=== PATIENT | female | born 1985 ===

== ENCOUNTER 2020-05-18 15:53 | Emergency (ER) | payer OTHER, SELFPAY ==
[2020-05-18 16:03] VITALS: BP 163/77; PULSE 100; RESP 18; TEMP 36.7; O2SAT 98; BMI 54.9
--- NOTE | 2020-05-18 18:39 | ED_ITS ---
HPI - Skin/Abscess/Foreign Bdy General Chief complaint: Skin/Abscess/Foreign Body <Anup Buck NP - Last Filed: 05/18/20 18:45> Stated complaint: spider bite, l leg swelling <Anup Buck NP - Last Filed: 05/18/20 18:45> Time Seen by Provider: 05/18/20 17:27 <Anup Buck NP - Last Filed: 05/18/20 18:45> Source: EMS <Anup Buck NP - Last Filed: 05/18/20 18:45> Mode of arrival: EMS <Anup Buck NP - Last Filed: 05/18/20 18:45> Limitations: no limitations <Anup Buck NP - Last Filed: 05/18/20 18:45> History of Present Illness HPI narrative: 34-year-old female blown past medical history presenting with complaint of spider bite to her left de la rosa area and her left anterior thigh area. States noticed this today. There is no fever. There is no chills. There is no joint aches. There is no recent travel or sick contacts. <Anup Buck NP - Last Filed: 05/18/20 18:45> MD complaint: rash <Anup Buck NP - Last Filed: 05/18/20 18:45> Onset (ago): day(s) <Anup Buck NP - Last Filed: 05/18/20 18:45> Tetanus up to date: yes <Anup Buck NP - Last Filed: 05/18/20 18:45> Location: [facility] <Anup Buck NP - Last Filed: 05/18/20 18:45> Severity: mild <Anup Buck NP - Last Filed: 05/18/20 18:45> Quality: aching and pruritic <Anup Buck NP - Last Filed: 05/18/20 18:45> Relieving factors: none <Anup Buck NP - Last Filed: 05/18/20 18:45> Exacerbating factors: none <Anup Buck NP - Last Filed: 05/18/20 18:45> Context: none <Anup Buck NP - Last Filed: 10/15/20 18:45> Associated symptoms: denies other symptoms <Anup Buck NP - Last Filed: 05/18/20 18:45> Treatments prior to arrival: none <Anup Buck NP - Last Filed: 05/18/20 18:45> Related Data Home medications: Previous Rx's Medication Instructions Recorded mupirocin calcium 1 applic TOPICAL BID #30 g 05/18/20 <Anup Buck NP - Last Filed: 05/18/20 18:45> Allergies/Adverse reactions: Allergies Allergy/AdvReac Type Severity Reaction Status Date / Time morphine Allergy Unknown throat Verified 12/29/19 00:00 closing BEES, CATS, DOGS Allergy Unknown Uncoded 12/29/19 00:00 Vicodin Allergy Unknown throat Uncoded 12/29/19 00:00 closing Prilosec AdvReac Unknown nose bleeds Uncoded 12/29/19 00:00 <Anup Buck NP - Last Filed: 05/18/20 18:45> Review of Systems Review of Systems: Constitutional: No Weight loss, No Fever, No Chills, No Night Sweats, No Fatigue, No Malaise ENT/Mouth: No Hearing loss, No Ear Pain, No Nasal Congestion, No Sinus Pain, No Hoarseness, No sore throat, No Rhinorrhea, No Swallowing Difficulty Eyes: No Eye Pain, No Swelling, No Redness, No Foreign Body, No Discharge, No Vision Changes Cardiovascular: No Chest Pain, No SOB, No Dyspnea on Exertion, No Orthopnea, No Edema, No Palpitations Respiratory: No Cough, No Sputum, No Wheezing, No Smoke Exposure, No Dyspnea Gastrointestinal: No Nausea, No Vomiting, No Diarrhea, No Constipation, No abdominal Pain, No Hematochezia, No Melena Genitourinary: no irregular bleeding, No Dysuria, No Urinary Frequency, No Hematuria, No Urinary Incontinence, No Urgency, No Flank Pain, No Urinary Flow Changes, No Hesitancy Musculoskeletal: No joint pain, No Myalgias, No Joint Swelling Skin: No Skin Lesions, + rash Neuro: No Weakness, No Numbness, No Paresthesias, No Loss of Consciousness, No Dizziness, No Headache Psych: No Anxiety/Panic, No Depression, No SI/HI/AH/VH, No Social Issues, Heme/Lymph: No Bruising, No Bleeding,No Lymphadenopathy Endocrine: No Polyuria, No Polydipsia, No Temperature Intolerance <Anup Buck NP - Last Filed: 05/18/20 18:45> [facility] Past Medical History Attestation statement: The following information was validated with the patient. <Anup Buck NP - Last Filed: 05/18/20 18:45> Medical History: Medical History (Updated 05/19/20 @ 00:01 by Sahil Cardenas) Anxiety Asthma Depression GERD (gastroesophageal reflux disease) HTN (hypertension) <Anup Buck NP - Last Filed: 05/18/20 18:45> Social History Social History: Social History Advance Directives: No Advance Directives Information Provided: Yes <Anup Buck NP - Last Filed: 05/18/20 18:45> Physical Exam Vital Signs: Vital Signs: Vital Signs Temp Pulse Resp BP Pulse Ox 05/18/20 16:03 98.1 F 100 18 163/77 H 98 Body Mass Index 54.9 Reviewed <Anup Buck NP - Last Filed: 05/18/20 18:45> Vital Signs: Vital Signs Temp Pulse Resp BP Pulse Ox 05/18/20 16:03 98.1 F 100 18 163/77 H 98 Body Mass Index 54.9 <Beto Cuenca MD - Last Filed: 05/23/20 15:30> Const: General: cooperative <Anup Buck NP - Last Filed: 05/18/20 18:45> HENMT: Head: Yes normal to inspection <Anup Buck NP - Last Filed: 05/18/20 18:45> Chest: Chest palpation & inspection: normal inspection of the chest <Anup Buck NP - Last Filed: 05/18/20 18:45> Breast/axilla inspection: normal inspection of the breasts <Anup Buck NP - Last Filed: 05/18/20 18:45> Resp: Effort & Inspection: normal respiratory effort <Anup Buck NP - Last Filed: 05/18/20 18:45> Skin: Other: Small area of follicular irritation noted to the left anterior de la rosa and left anterior thigh. There is no obvious insect bite, indurated/ abscessed area. There is no erythema. There is no discharge. There is no bull's eye rash. <Anup Buck NP - Last Filed: 05/18/20 18:45> Course Course Course Narrative: I have reviewed the chart <Beto Cuenca MD - Last Filed: 05/23/20 15:30> Discharge Plan Discharge Clinical Impression: Insect bites, Folliculitis <Anup Buck NP - Last Filed: 05/18/20 18:45> Patient Disposition: Home, Self-Care <Anup Buck NP - Last Filed: 05/18/20 18:45> Instructions: Insect Bite or Sting (ED) <Anup Buck NP - Last Filed: 05/18/20 18:45> Prescriptions: New mupirocin calcium 2 % cream 1 applic topical BID Qty: 30 RF: 0 <Anup Buck NP - Last Filed: 05/18/20 18:45> Interventions: ED Discharge Assessment Last Done: 05/18/20 19:11 <Anup Buck NP - Last Filed: 05/18/20 18:45> Discharge Date/Time: 05/18/20 19:13 <Anup Buck NP - Last Filed: 05/18/20 18:45>
== END 2020-05-18 19:13 | disposition home or self-care (01) ==
PROVIDERS: Emergency Provider Emergency Medicine; PCP Internal Medicine
DX: L73.9 Follicular disorder, unspecified (principal); S70.362A Insect bite (nonvenomous), left thigh, initial encounter; S80.862A Insect bite (nonvenomous), left lower leg, initial encounter; W57.XXXA Bitten or stung by nonvenomous insect and other nonvenomous arthropods, initial encounter; I10 Essential (primary) hypertension; Y93.9 Activity, unspecified; Y92.009 Unspecified place in unspecified non-institutional (private) residence as the place of occurrence of the external cause; Y99.9 Unspecified external cause status
CPT/HCPCS: 99283

== ENCOUNTER 2020-05-24 15:59 | Emergency (ER) | payer OTHER, SELFPAY ==
[2020-05-24 16:45] VITALS: BP 137/80; PULSE 95; RESP 16; TEMP 36.4; O2SAT 96; BMI 54.9
--- NOTE | 2020-05-24 17:17 | ED_ITS ---
HPI - Skin/Abscess/Foreign Bdy General Chief complaint: Wound/Laceration Stated complaint: wound check Time Seen by Provider: 05/24/20 17:07 Source: patient Mode of arrival: ambulatory Limitations: no limitations History of Present Illness HPI narrative: 34-year-old female presenting to the ED with complaints of an abscess that already drained at home prior to arrival with moderate surrounding redness. Denies any other symptoms complaints or concerns related to this. Denies history of MRSA. Related Data Previous Rx's Medication Instructions Recorded mupirocin calcium 1 applic TOPICAL BID #30 g 05/18/20 cephalexin [Keflex] 500 mg PO Q6H 10 Days #40 cap 05/24/20 doxycycline monohydrate 100 mg PO BID 10 Days #20 cap 05/24/20 Allergies Allergy/AdvReac Type Severity Reaction Status Date / Time morphine Allergy Unknown throat Verified 12/29/19 00:00 closing BEES, CATS, DOGS Allergy Unknown Uncoded 12/29/19 00:00 Vicodin Allergy Unknown throat Uncoded 12/29/19 00:00 closing Prilosec AdvReac Unknown nose bleeds Uncoded 12/29/19 00:00 Review of Systems Review of Systems: Constitutional : No Fever, No Chills, No Fatigue, No Malaise Musculoskeletal : No joint pain, No Myalgias, No Joint Swelling Skin : + Skin Lesions, No rash Neuro : No Weakness Heme/Lymph: No Lymphadenopathy Yes all other systems are reviewed and are negative [facility] Past Medical History Attestation statement: The following information was validated with the patient. Medical History Anxiety Asthma Depression GERD (gastroesophageal reflux disease) HTN (hypertension) Social History Social History Alcohol intake: never Smoked in Last 30 Days: No Use of substances other than those prescribed or required for medical reasons: No Advance Directives: No Advance Directives Information Provided: Yes Physical Exam Vital Signs: Vital Signs: Vital Signs Temp Pulse Resp BP Pulse Ox 05/24/20 16:45 97.6 F 95 16 137/80 96 Body Mass Index 54.9 vital signs have been reviewed as normal and appeared to be correct. Blood pressure normal. Heart rate normal. Respiration rate normal. Temperature normal. Oxygen saturation normal. Appearance: Alert. Oriented X3. No acute distress. Head: Normal external exam. Normocephalic. Atraumatic. No Fuentes signs noted. No raccoon eyes noted Eyes: PERRLA. EOMI. Conjunctiva and sclera normal. Eyelids normal. ENT: EAC normal. TM's Normal. Pharynx normal. Uvula midline. Moist mucous membranes. No trismus noted. No drooling noted. No muffled voice noted. Neck: Normal inspection. Neck supple. FROM. No adenopathy. Thyroid Normal. No meningeal signs. No neck mass noted. CVS: Normal heart rate and rhythm. Heart sound normal. No murmurs noted. Pulses normal throughout. Respiratory: No respiratory distress. Painless inspiration. Breath sounds normal. No wheezes/rales/rhonchi noted. Chest nontender. No accessory muscle usage noted or decreased air movement noted. Abdomen: Soft and nontender. Bowel sounds normal in all 4 quadrants. No distention noted. No organomegaly noted. No visible injury noted. Back: No CVA tenderness. Full range of motion noted. Skin: Skin warm and dry. Normal skin color. Normal skin turgor. No rashes/lacerations noted. Wound noted to right side of back with moderate surrounding erythema. No streaking/ induration / fluctuance noted or drainage. Extremities: No lower extremity edema. Extremities exhibit normal range of motion. Extremities nontender. Neuro: Oriented X 3. No motor deficit. No sensory deficit. Reflexes normal. Course Course Course Narrative: 34-year-old female presenting to the ED with complaints of an abscess that already drained at home prior to arrival with moderate surrounding redness. Denies any other symptoms complaints or concerns related to this. Denies history of MRSA. - Plan: I cleaned the wound covered with topical bacitracin and a knot inherent clean dressing will DC home with antibiotics and referral to the wound clinic. Patient understands to return if any new or worsening symptoms and to follow-up with the wound clinic and her primary. Discharge Plan Discharge Clinical Impression: Wound cellulitis Cellulitis Qualifiers: Site of cellulitis: trunk Site of cellulitis of trunk: back Qualified Code(s): L03.312 - Cellulitis of back [any part except buttock] Patient Disposition: Home, Self-Care Instructions: Cellulitis (ED), Acute Wounds (ED) Additional Instructions: Please follow-up with the Wound Clinic I gave you a slip with the information for the wound clinic. Or return if any new or worsening symptoms. Also follow- up with your primary care provider. Prescriptions: New doxycycline monohydrate 100 mg capsule 100 mg PO BID 10 Days Qty: 20 RF: 0 cephalexin [Keflex] 500 mg capsule 500 mg PO Q6H 10 Days Qty: 40 RF: 0 No Action mupirocin calcium 2 % cream 1 applic topical BID Qty: 30 RF: 0 Print Language: Polish
== END 2020-05-24 17:45 | disposition home or self-care (01) ==
PROVIDERS: Emergency Provider Emergency Medicine
DX: L03.312 Cellulitis of back [any part except buttock and flank] (principal); S31.000A Unspecified open wound of lower back and pelvis without penetration into retroperitoneum, initial encounter; X58.XXXA Exposure to other specified factors, initial encounter; I10 Essential (primary) hypertension; Y93.9 Activity, unspecified; Y92.9 Unspecified place or not applicable; Y99.9 Unspecified external cause status
CPT/HCPCS: 99283; 99284

== ENCOUNTER 2024-04-15 11:26 | Outpatient (AMB) | payer OTHER, SELFPAY ==
[2024-04-15 11:27] VITALS: BP 138/84; PULSE 72; O2SAT 96; BMI 73.3
--- NOTE | 2024-04-15 11:27 | A.OFFPC_ITS ---
Vital Signs 3 04/15/24 11:27 Height 5 ft 5 in Weight 440 lb 7.737 oz BMI 73.3 BP 138/84 Blood Pressure Location Lt brachial Position Sitting Pulse 72 Pulse Source Pulse Oximeter Pulse Oximetry (%) 96 Oxygen Delivery Method Room Air Intake Visit Reasons: pre-op with Dr. 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 Accompanied by: Self / Same As Patient Allergies morphine Allergy (Unknown, Verified 04/15/24 11:49) throat closing BEES, CATS, DOGS Allergy (Unknown, Uncoded 04/15/24 11:49) rash Vicodin Allergy (Unknown, Uncoded 04/15/24 11:49) throat closing Prilosec Adverse Reaction (Unknown, Uncoded 04/15/24 11:49) nose bleeds Medication List - Last Reconciled 04/15/24 by Wendy Núñez PA-C albuterol sulfate 90 mcg/actuation (ProAir HFA) 2 puffs inhalation QID utimhbnhkc-sbjmhsqxsuity-whhg 50-325-40 mg 1 cap PO Q6H PRN 3 days gabapentin 800 mg PO BID hydrochlorothiazide 25 mg PO DAILY 30 days hydroxyzine HCl 25 mg PO TID PRN ibuprofen 600 mg PO TID 7 days mupirocin 2% 1 appl topical BID 10 days mupirocin calcium 2% 1 appl topical BID ondansetron 8 mg PO Q12H PRN 5 days pantoprazole 40 mg PO DAILY 90 days prednisone 20 mg PO DAILY 3 days propranolol 20 mg PO BID sumatriptan succinate take 1 tab at onset of headache; if no relief may repeat 1 tab after at least 2 hrs; max = 4 tabs/24 hr PO 30 days tizanidine 2 mg PO Q8H PRN 5 days Tobacco use date assessed: 04/15/24 Dental Screening Dental Screen Date: 04/15/24 Did you have a dental visit in the last 12 months?: No Did you have a dental problem in the last 6 months where you did not have access to dental care?: No Was dental information given to patient?: Patient has dentist HPI pre-op with Dr. Duke 04/22 2 HPI0 Details 38 year old female with past history of asthma, GERD, hypertension, PTSD, anxiety, OCD, and IBS last seen by Nurse Practitioner coming in for pre op appointment. Patient has not been seen in our office since 2021. Patient states she is feeling generally well she does follow with [facility]NOTE 3] in [place] for all of her psychiatric diagnoses and treatment. She does admit to occasional leg swelling and does salt baths and elevation with good improvement. She does have a concern of a open lesion on the left side of her abdomen which has been present for the last 4 days. She states she does have rib pain along with this which began about the same time the lesion appeared. She will manually drain the lesion every day which produces green white discharge. 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 [facility] Medical History (Updated 04/15/24 @ 12:59 by Wendy Núñez PA-C) HTN (hypertension) GERD (gastroesophageal reflux disease) Anxiety Depression Asthma Surgical History (Updated 04/15/24 @ 11:57 by Wendy Núñez PA-C) H/O breast surgery Social History Housing: House Alcohol intake: never Patient Tobacco Use Status: Never used Tobacco e-Cigarette/Vaping Use: Never Used Second Hand Smoke Exposure: No service: No Current occupational status: disabled Current occupational exposures/hazards: No Cognitive needs: No Hearing needs: No Vision needs: Yes Questionnaire PHQ-9 Over the last 2 weeks, how often have you been bothered by any of the following problems? 1. Little interest or pleasure in doing things: more than half the days 2. Feeling down, depressed, or hopeless: nearly every day 3. Trouble falling or staying asleep, or sleeping too much: more than half the days 4. Feeling tired or having little energy: more than half the days 5. Poor appetite or overeating: more than half the days 6. Feeling bad about yourself - or that you are a failure or have let yourself or your family down: nearly every day 7. Trouble concentrating on things, such as reading the newspaper or watching television: several days 8. Moving or speaking so slowly that other people could have noticed. Or the opposite - being so fidgety or restless that you have been moving around a lot more than usual: several days 9. Thoughts that you would be better off or of hurting yourself in some way: not at all Total score: 16 Depression Screening Interpretation: Positive Depression Screening Done: Yes 36287 - PHQ-9 Billing: Yes Source: Developed by Drs. Héctor Tilley, Laura Ortiz, Sharif Duenas and colleagues, with an educational stella from [employer]. Thrive Questionnaire Date Thrive assessed: 04/15/24 I am a: Patient What is your living situation today?: I have a steady place to live Within the past 12 months, did the food you bought not last and you didn't have the money to get more?: Never true Within the past 12 months, did you worry whether your food would run out before you got money to buy more?: Never true Do you have trouble paying for medicines?: No Do you have trouble getting transportation to medical appointments?: No Do you have trouble paying your heating and electricity bill?: No Do you have trouble taking care of your child, family member or friend?: No Do you have trouble with day-to-day activities such as bathing, preparing meals, shopping, managing finances, etc.?: No Are you currently unemployed and looking for a job?: No Are you interested in more education?: No Please select the resources that you would like help with: None Currently or been in a relationship where the following occur: No concerns reported THRIVE Score: 0 AUDIT C Alcohol Use Questionnaire (AUDIT-C) 1. How often do you have a drink containing alcohol?: Never Total Score: 0 Score Reviewed/Action Taken: No PILY-7 AMB Questionnaire PILY-7 Date PILY - 7 assessed: 04/15/24 Feeling nervous, anxious, or on edge: 2 = More than half the days Not being able to stop or control worryin = More than half the days Worrying too much about different things: 2 = More than half the days Trouble relaxin = More than half the days Being so restless that it is hard to sit still: 2 = More than half the days Becoming easily annoyed or irritable: 2 = More than half the days Feeling afraid as if something awful might happen: 2 = More than half the days Total PILY-7 score (0-4 normal; 5-9 mild; 10-14 moderate; 15-21 severe): 14 Source: Developed by Laura Escalante Kurt Kroenke and colleagues, with an educational stella from [employer]. PILY-7 Assessment Billing PILY-7 Assessment Tool: PILY-7 Assessment 35115 Review of Systems Const Denies body aches, Denies fatigue, Denies fever(s), Denies frequent falls, Reports headache(s) and Denies weakness Eyes Reports no additional complaints and Denies change in vision ENT Denies dysphagia, Denies dizziness, Denies facial pain, Reports headache(s), Denies nasal congestion and Denies odynophagia Card Denies chest pain, Denies syncope, Denies irregular heart rhythm, Denies leg edema, Denies lightheadedness and Denies dyspnea Resp Denies cough and Denies dyspnea GI Denies abdominal pain, Reports constipation (IBS), Denies dysphagia, Denies dyspepsia, Reports diarrhea (IBS), Denies nausea, Denies odynophagia and Denies vomiting Denies urinary frequency, Denies dysuria, Denies urinary hesitancy and Denies urinary urgency Musc Denies back pain and Denies myalgias Skin/Breast Reports system reviewed and no additional complaints, except as documented Neuro Denies dizziness, Denies syncope, Denies frequent falls, Reports headache(s) and Denies weakness Psych Reports no additional complaints Endo Denies fatigue Physical exam (Primary Care) Vital Signs: Last Vital Signs Pulse 72 04/15/24 11:27 BP 138/84 04/15/24 11:27 Pulse Ox 96 04/15/24 11:27 Oxygen Delivery Method Room Air 04/15/24 11:27 BMI result Body Mass Index 73.3 Tobacco/Smoking Status: Tobacco use Status Tobacco use date assessed 04/15/24 04/15/24 11:29 Patient Tobacco Use Status Never used Tobacco 04/15/24 11:27 e-Cigarette/Vaping Use Never Used 04/15/24 11:27 PHQ-9: PHQ-9 Score PHQ-9: Total score 16 04/15/24 11:36 Depression Screening Interpretation: Positive Thrive Assessment: Date of Thrive Assessment Date Thrive assessed 04/15/24 04/15/24 11:29 Currently or been in a relationship where the following occur: No concerns reported Const General: cooperative, healthy appearing, comfortable and no acute distress Orientation/consciousness: patient oriented x3 HENMT Head: Yes normocephalic Ears: hearing grossly normal bilaterally, external ears normal, TM's normal bilaterally and EAC's normal General nose exam: Normal external nose present Face and sinus: Yes normal facial exam and Yes sinuses nontender Mouth: Normal oral and palatal mucosa present and tongue normal Throat: Yes posterior oropharynx normal Eyes General: appearance normal, both eyes and all related structures Conjunctivae: conjunctivae normal Pupils: Equal, round and reactive pupils present EOM: EOMs intact bilaterally and No Nystagmus present Neck Neck: Yes normal visual inspection, Yes full ROM and Yes no lymphadenopathy Chest Other: Tenderness to palpation over bilateral ribs Chest palpation & inspection: normal inspection of the chest Resp Effort & Inspection: normal respiratory effort Auscultation: clear to auscultation bilaterally, no crackles, no rales, no rhonchi, no wheezes and breath sounds present Cardio Rate: regular rate Rhythm: regular rhythm Peripheral pulses: radial pulses present and dorsalis pedis present GI Inspection: Yes normal to inspection and No Abdominal wall edema Palpation (GI): Soft to palpation, not firm and nontender Auscultation: normal bowel sounds Rectal Exam - Female: deferred General: Yes no CVA tenderness Back/Spine/Pelvis Back: no CVA tenderness Skin Other: Patient has 1-2 cm open wound on left side of abdomen without evidence tunneling and without drainage. There is surrounding erythema in about a 3 cm radius Full body images: 2 1. Lesion Neuro General: patient oriented x3 Cranial nerves: Yes Equal, round and reactive pupils present, Yes Midline tongue present, Yes Ability to bilaterally elevate shoulders present and No Nystagmus present Gait exam (Neuro): Normal gait present Extrem General: Yes normal to inspection, Yes full ROM, No no pedal edema and No edema Psych Speech and movement: Normal speech and movement present Affect: normal affect Insight: Good insight present (Psych) Judgement: Good judgement present (Psych) Assessment and Plan Assessment & Plan (1) Asthma: Code(s): J45.909 - Unspecified asthma, uncomplicated Plan: Patient states her asthma is well controlled and rarely uses her inhaler. Refill sent or inhaler. Continue to avoid triggers such as allergens and smoke. (2) Depression: Code(s): F32.9 - Major depressive disorder, single episode, unspecified Qualifiers: Depression Type: other depression Qualified Code(s): F32.89 - Other specified depressive episodes Plan: Currently being managed by [facility]. Continue on current med regimen. (3) Anxiety: Code(s): F41.9 - Anxiety disorder, unspecified Plan: Currently following with [facility] and continue on current med regimen. (4) GERD (gastroesophageal reflux disease): Code(s): K21.9 - Gastro-esophageal reflux disease without esophagitis Plan: Avoid trigger foods such as citrus, tomato products, soda, caffeine, spicy foods and other foods that may be irritating to your stomach. Avoid laying flat 3-4 hours after eating and elevate the head of the bed 30 degrees to prevent acid from moving into the esophagus. Continue on pantoprazole (5) HTN (hypertension): Code(s): I10 - Essential (primary) hypertension Plan: Previously on blood pressure medication that made her lightheaded and dizzy and no longer takes. Blood pressure at goal today. Avoid salt intake and encourage healthy diet and regular exercise. (6) PTSD (post-traumatic stress disorder): Code(s): F43.10 - Post-traumatic stress disorder, unspecified Plan: Continue to follow with [facility] and continue on current med regimen. (7) Annual physical exam: Code(s): Z00.00 - Encounter for general adult medical examination without abnormal findings Plan: Patient is up-to-date on all recommended routine screenings and vaccinations for her age, unclear when her last Pap was completed. Ordered for updated blood work. (8) Rib pain: Code(s): R07.81 - Pleurodynia Plan: Patient states she has been having rib pain since the presence of the cellulitis lesion and would like an x-ray. She did have pain on palpation of the ribs on exam. Chest x-ray ordered. (9) Cellulitis: Code(s): L03.90 - Cellulitis, unspecified Qualifiers: Site of cellulitis: trunk Site of cellulitis of trunk: back Qualified Code(s): L03.312 - Cellulitis of back [any part except buttock] Plan: Patient does have small lesion left side of the abdomen down while occasionally drain. She has been manually draining the lesion which produces yellow/green purulent discharge. Lesion has been present for about 4 days and she denies any fevers. She does have a history of necrotizing cellulitis as well as MRSA and we will cover for MRSA with Bactrim and follow up in 1 week. Plan This note was constructed using voice recognition software. While every effort has been made to ensure accuracy and management lecturer, still areas may have been included sometimes these areas may affect the content or meeting of the given symptoms. Total time spent caring for the patient today was 30 minutes. This includes time spent before the visit reviewing the chart, time spent during the visit, and time spent after the visit and documentation. Orders: Orders 2 Comprehensive Met. Panel Today Z00.00 - Encounter for general adult medical examination without abnormal findings Lipid Panel Today Z00.00 - Encounter for general adult medical examination without abnormal findings Vitamin B12 and Folate Today Z00.00 - Encounter for general adult medical examination without abnormal findings Vitamin D 25-OH (D2 and D3) Today Z00.00 - Encounter for general adult medical examination without abnormal findings Hemoglobin A1c Today Z00.00 - Encounter for general adult medical examination without abnormal findings XR chest 2V Today F32.89 - Other specified depressive episodes, F41.9 - Anxiety disorder, unspecified, F43.10 - Post-traumatic stress disorder, unspecified, I10 - Essential (primary) hypertension, J45.909 - Unspecified asthma, uncomplicated, K21.9 - Gastro-esophageal reflux disease without esophagitis, R07.81 - Pleurodynia, Z00.00 - Encounter for general adult medical examination without abnormal findings Complete Blood Count Auto Diff Today Z00.00 - Encounter for general adult medical examination without abnormal findings Free T4 (Free Thyroxine) Today Z00.00 - Encounter for general adult medical examination without abnormal findings TSH reflex Free T4 Today Z00.00 - Encounter for general adult medical examination without abnormal findings Medications: New 2 sulfamethoxazole-trimethoprim 800-160 mg (Bactrim DS) 1 tab PO BID 7 days 14 tabs 0RF Changed 2 From albuterol sulfate 90 mcg/actuation (ProAir HFA) 2 puffs inhalation QID 8.5 ea 0RF J45.909 - Unspecified asthma, uncomplicated To albuterol sulfate 90 mcg/actuation 2 puffs inhalation QID 8.5 ea 0RF J45.909 - Unspecified asthma, uncomplicated Refilled 2 ondansetron 8 mg PO Q12H 5 days PRN 10 tabs 0RF nausea and vomiting Coding Level of Care Code Est Pt Level 3 (90676) Est Pt Prev Care 18-39y(34492) Diagnoses Asthma J45.909 Other depression F32.89 Depression Type: other depression Anxiety F41.9 GERD (gastroesophageal reflux disease) K21.9 HTN (hypertension) I10 PTSD (post-traumatic stress disorder) F43.10 Annual physical exam Z00.00 Rib pain R07.81 Cellulitis L03.312 Site of cellulitis: trunk Site of cellulitis of trunk: back Additional Codes PILY-7 Assessment Billing - PILY-7 Assessment Tool: PILY-7 Assessment 66099 ([id number])
== END 2024-04-15 12:12 | disposition home or self-care (01) ==
DX: Z00.00 Encounter for general adult medical examination without abnormal findings (principal); F32.89 Other specified depressive episodes; J45.909 Unspecified asthma, uncomplicated; F41.9 Anxiety disorder, unspecified; L03.311 Cellulitis of abdominal wall; K21.9 Gastro-esophageal reflux disease without esophagitis; I10 Essential (primary) hypertension; F43.10 Post-traumatic stress disorder, unspecified; R07.81 Pleurodynia
CPT/HCPCS: 99213; 99395

== ENCOUNTER 2024-04-15 12:20 | Outpatient (REF) | payer OTHER, SELFPAY ==
--- NOTE | ~2024-04-15 | XR_ITS ---
EXAMINATION: XR CHEST CLINICAL INFORMATION: Pleurodynia COMPARISON: None available. TECHNIQUE: 2 views of the chest were obtained. FINDINGS: No significant abnormality is noted involving the heart, lungs, mediastinum, bony thorax or soft tissues. XR/XR chest 2V IMPRESSION: No acute cardiopulmonary disease. Electronically signed by: Karli Otoole MD 05/06/2024 02:08 PM EDT
== END 2024-04-15 12:21 | disposition home or self-care (01) ==
LOC: HO.XRAY 12:20
DX: R07.81 Pleurodynia (principal)
CPT/HCPCS: 71046

== ENCOUNTER 2024-04-28 08:28 | Outpatient (AMB) | payer OTHER, SELFPAY ==
[2024-04-28 08:44] VITALS: BP 126/84; PULSE 92; O2SAT 98; BMI 73.7
--- NOTE | 2024-04-28 08:44 | A.OFFPC_ITS ---
Vital Signs 04/28/24 08:44 Height 5 ft 5 in Weight 443 lb 2.066 oz BMI 73.7 BP 126/84 Blood Pressure Location Lt brachial Position Sitting Pulse 92 Pulse Source Pulse Oximeter Pulse Oximetry (%) 98 Oxygen Delivery Method Room Air Intake Visit Reasons: f/u cellulitis Chainstitch Seat Joiner Required: No Accompanied by: Self / Same As Patient Allergies morphine Allergy (Unknown, Verified 04/28/24 09:29) throat closing BEES, CATS, DOGS Allergy (Unknown, Uncoded 04/28/24 09:29) rash Vicodin Allergy (Unknown, Uncoded 04/28/24 09:29) throat closing Prilosec Adverse Reaction (Unknown, Uncoded 04/28/24 09:29) nose bleeds Medication List - Last Reconciled 04/28/24 by Wendy Núñez PA-C albuterol sulfate 90 mcg/actuation 2 puffs inhalation QID sbsdgfhnuk-bwimulnpwyslr-xukh 50-325-40 mg 1 cap PO Q6H PRN 3 days gabapentin 800 mg PO BID hydrochlorothiazide 25 mg PO DAILY 30 days ibuprofen 600 mg PO TID 7 days mupirocin 2% 1 appl topical BID 10 days mupirocin calcium 2% 1 appl topical BID ondansetron 8 mg PO Q12H PRN 5 days pantoprazole 40 mg PO DAILY 90 days prednisone 20 mg PO DAILY 3 days propranolol 20 mg PO BID sulfamethoxazole-trimethoprim 800-160 mg (Bactrim DS) 1 tab PO BID 7 days sumatriptan succinate take 1 tab at onset of headache; if no relief may repeat 1 tab after at least 2 hrs; max = 4 tabs/24 hr PO 30 days tizanidine 2 mg PO Q8H PRN 5 days Tobacco use date assessed: 04/28/24 Dental Screening Dental Screen Date: 04/28/24 Did you have a dental visit in the last 12 months?: No Did you have a dental problem in the last 6 months where you did not have access to dental care?: No Was dental information given to patient?: Patient has dentist HPI f/u cellulitis HPI Details 38-year-old female with past medical his tory of asthma, GERD, hypertension, PTSD, anxiety, OCD, and IBS last seen April 2024 coming in for cellulitis follow up. In review of the notes, patient was seen in [facility] ED 04/21/2024 for cellulitis in the ER was not found to have any evidence of cellulitis on the left abdominal wall she was given a dose of Bactrim and advised to complete her antibiotic course and given Zofran. She tells us today she is still having severe left-sided abdominal pain along with left-sided leg swelling and pain. In 2019 she had a splenic injury after sustaining a fall and she feels the pain is similar to that episode. She continues to have deep severe pain in the abdomen. The cellulitis and open wound has closed and no sign of infection at this time. She also mentioned she has pain when taking a deep breath in the abdomen and left side of the back. [facility] Medical History (Updated 04/28/24 @ 12:04 by Wendy Núñez PA-C) HTN (hypertension) GERD (gastroesophageal reflux disease) Anxiety Depression Asthma Surgical History H/O breast surgery Social History Housing: House Alcohol intake: never Patient Tobacco Use Status: Never used Tobacco e-Cigarette/Vaping Use: Never Used Second Hand Smoke Exposure: No Do you have a plan to hurt others: No Plan service: No Current occupational status: disabled Current occupational exposures/hazards: No Cognitive needs: No Hearing needs: No Vision needs: Yes Questionnaire PHQ-9 Over the last 2 weeks, how often have you been bothered by any of the following problems? 1. Little interest or pleasure in doing things: more than half the days 2. Feeling down, depressed, or hopeless: nearly every day 3. Trouble falling or staying asleep, or sleeping too much: more than half the days 4. Feeling tired or having little energy: more than half the days 5. Poor appetite or overeating: more than half the days 6. Feeling bad about yourself - or that you are a failure or have let yourself or your family down: nearly every day 7. Trouble concentrating on things, such as reading the newspaper or watching television: several days 8. Moving or speaking so slowly that other people could have noticed. Or the opposite - being so fidgety or restless that you have been moving around a lot more than usual: several days 9. Thoughts that you would be better off or of hurting yourself in some way: not at all Total score: 16 Depression Screening Interpretation: Positive Depression Screening Done: Yes 00532 - PHQ-9 Billing: Yes Source: Developed by Drs. Héctor Tilley, Laura Ortiz, Sharif Duenas and colleagues, with an educational stella from [employer]. Thrive Questionnaire Date Thrive assessed: 04/28/24 I am a: Patient What is your living situation today?: I have a steady place to live Within the past 12 months, did the food you bought not last and you didn't have the money to get more?: Never true Within the past 12 months, did you worry whether your food would run out before you got money to buy more?: Never true Do you have trouble paying for medicines?: No Do you have trouble getting transportation to medical appointments?: No Do you have trouble paying your heating and electricity bill?: No Do you have trouble taking care of your child, family member or friend?: No Do you have trouble with day-to-day activities such as bathing, preparing meals, shopping, managing finances, etc.?: No Are you currently unemployed and looking for a job?: No Are you interested in more education?: No Please select the resources that you would like help with: None Currently or been in a relationship where the following occur: No concerns reported THRIVE Score: 0 AUDIT C Alcohol Use Questionnaire (AUDIT-C) 1. How often do you have a drink containing alcohol?: Never Total Score: 0 Score Reviewed/Action Taken: No PILY-7 AMB Questionnaire PILY-7 Date PILY - 7 assessed: 04/28/24 Feeling nervous, anxious, or on edge: 2 = More than half the days Not being able to stop or control worryin = More than half the days Worrying too much about different things: 2 = More than half the days Trouble relaxin = More than half the days Being so restless that it is hard to sit still: 2 = More than half the days Becoming easily annoyed or irritable: 2 = More than half the days Feeling afraid as if something awful might happen: 2 = More than half the days Total PLIY-7 score (0-4 normal; 5-9 mild; 10-14 moderate; 15-21 severe): 14 Source: Developed by Drs. Héctor Tilley, Laura Ortiz, Sharif Duenas and colleagues, with an educational stella from [employer]. PILY-7 Assessment Billing PILY-7 Assessment Tool: PILY-7 Assessment 51712 Review of Systems Const Reports body aches, Denies chills and Denies fever(s) Eyes Reports no additional complaints ENT Reports no additional complaints Card Denies chest pain, Reports leg edema (Left leg), Denies lightheadedness and Denies dyspnea Resp Denies cough and Denies dyspnea GI Details: Severe left-sided abdominal pain Denies constipation, Denies diarrhea, Reports nausea and Denies vomiting Reports no additional complaints Musc Details: Left leg pain and swelling Skin/Breast Details: Cellulitis has cleared Physical exam (Primary Care) Vital Signs: Last Vital Signs Pulse 92 04/28/24 08:44 BP 126/84 04/28/24 08:44 Pulse Ox 98 04/28/24 08:44 Oxygen Delivery Method Room Air 04/28/24 08:44 BMI result Body Mass Index 73.7 Tobacco/Smoking Status: Tobacco use Status Tobacco use date assessed 04/28/24 04/28/24 08:51 Patient Tobacco Use Status Never used Tobacco 04/28/24 08:44 e-Cigarette/Vaping Use Never Used 04/28/24 08:44 PHQ-9: PHQ-9 Score PHQ-9: Total score 16 04/28/24 12:02 Depression Screening Interpretation: Positive Thrive Assessment: Date of Thrive Assessment Date Thrive assessed 04/28/24 04/28/24 08:51 Currently or been in a relationship where the following occur: No concerns reported Const General: cooperative, healthy appearing, comfortable and no acute distress Orientation/consciousness: patient oriented x3 HENMT Head: Yes normocephalic Ears: hearing grossly normal bilaterally General nose exam: Normal external nose present Eyes General: appearance normal, both eyes and all related structures Conjunctivae: conjunctivae normal Neck Neck: Yes full ROM and Yes no lymphadenopathy Resp Effort & Inspection: normal respiratory effort Auscultation: clear to auscultation bilaterally, no crackles, no rales, no rhonchi and no wheezes Cardio Rate: regular rate Rhythm: regular rhythm GI Other: Patient unable to tolerate deep palpation of the abdomen has exquisite tenderness palpation Palpation (GI): not firm and Tenderness to palpation present (GI) in the LLQ and in the LUQ Skin Other: 4-5 cm well-healing lesion without erythema, drainage, warmth on left side of abdomen Neuro General: patient oriented x3 Gait exam (Neuro): Normal gait present Extrem Other: Left lower extremity tenderness and swelling. No redness, warmth, swelling of left calf. General: Yes normal to inspection, Yes full ROM and No edema Psych Affect: normal affect Attitude: cooperative Insight: Good insight present (Psych) Judgement: Good judgement present (Psych) Assessment and Plan Assessment & Plan (1) Abdominal pain: Code(s): R10.9 - Unspecified abdominal pain Plan: Patient continues to have deep severe abdominal pain and can not tolerate an abdominal exam at this time. Advised patient to go to ER if she does have severe abdominal pain as she will most likely require imaging. Patient agrees to go to [place] ED at this time. (2) Cellulitis: Code(s): L03.90 - Cellulitis, unspecified Qualifiers: Site of cellulitis: trunk Site of cellulitis of trunk: back Qualified Code(s): L03.312 - Cellulitis of back [any part except buttock] Plan: Cellulitis has resolved and lesion has closed completely with routine wound hea ling. No erythema, warmth, drainage at this time and no further follow up recommended for this concern. Plan This note was constructed using voice recognition software. While every effort has been made to ensure accuracy and creative/art director, still areas may have been included sometimes these areas may affect the content or meeting of the given symptoms. Total time spent caring for the patient today was 30 minutes. This includes time spent before the visit reviewing the chart, time spent during the visit, and time spent after the visit and documentation. Coding Level of Care Code Est Pt Level 4 (67244) Diagnoses Abdominal pain R10.9 Cellulitis L03.312 Site of cellulitis: trunk Site of cellulitis of trunk: back Additional Codes PILY-7 Assessment Billing - PILY-7 Assessment Tool: PILY-7 Assessment [id number] ([id number])
== END 2024-04-28 09:06 | disposition home or self-care (01) ==
DX: R10.9 Unspecified abdominal pain (principal); L03.312 Cellulitis of back [any part except buttock and flank]

== ENCOUNTER → 2024-04-28 08:28 | Outpatient (BNVA) | payer OTHER, SELFPAY | DX: R10.9 Unspecified abdominal pain (principal); L03.312 Cellulitis of back [any part except buttock and flank] | CPT/HCPCS: 96127; 99212 ==

== ENCOUNTER 2024-04-28 09:16 | Emergency (ER) | payer OTHER, SELFPAY ==
--- NOTE | ~2024-04-28 | US_ITS ---
EXAMINATION: US TRIPLEX LOWER EXTREMITY, LEFT CLINICAL INFORMATION: Pain and swelling COMPARISON: None available. TECHNIQUE: Color-flow triplex imaging with spectral analysis and compression Doppler were performed on the left lower extremity. FINDINGS: Respiratory variation, normal compression and augmented flow are noted throughout the left lower extremity. Note that the study was somewhat limited due to body habitus. The left peroneal vein and distal femoral vein was not completely visualized by the rotary drier feeder. The visualized common femoral vein, superficial femoral vein, profunda femoral vein, popliteal vein and midcalf peroneal and posterior tibial venous segments show no evidence of deep venous thrombosis. There is no Duarte's cyst. US/US venous duplex LE IMPRESSION: No evidence of deep venous thrombosis involving the left lower extremity, given the above described limitations. Electronically signed by: Neto Ye MD 04/28/2024 04:05 PM EDT
--- NOTE | ~2024-04-28 | CT_ITS ---
EXAMINATION: CT ABDOMEN AND PELVIS WITH CONTRAST CLINICAL INFORMATION: Left upper quadrant pain. History of splenic laceration. COMPARISON: None available. TECHNIQUE: Multidetector volumetric images were obtained from the superior aspect of the liver through the pubic symphysis following administration 85 mL of Omnipaque 350 intravenous contrast. Sagittal and coronal reformatted images were obtained on the technologist's workstation. Oral contrast: No This CT examination was performed using dose optimization techniques as appropriate, variously including the following: *Automated exposure control *Adjustment of mA and/or kV according to patient size (this includes techniques or standardized protocols for targeted exams where dose is matched to indication/reason for exam; i.e. extremities or head) *Use of iterative reconstruction technique DLP: 1632 mGy-cm FINDINGS: LUNG BASES: Mild bibasilar atelectasis/scarring. No pericardial or pleural effusion. LIVER, GALLBLADDER, AND BILIARY TREE: Right lobe measures 20.8 cm.. No focal hepatic lesion or biliary ductal dilatation is present. The gallbladder is unremarkable with no evidence of radiopaque gallstones, gallbladder wall thickening, or obvious pericholecystic inflammatory changes. PANCREAS: Unremarkable. No acute inflammatory changes. No pancreatic duct dilatation seen. SPLEEN: Unremarkable. No perisplenic fluid or edema. ADRENAL GLANDS: Unremarkable. KIDNEYS AND URETERS: The kidneys are normal in size, shape, and attenuation. No hydronephrosis, hydroureter, or calculi seen. No perinephric stranding. BLADDER: Unremarkable. GASTROINTESTINAL TRACT: The small and large bowel are unremarkable. No bowel inflammatory changes seen. Stomach is partially distended, grossly appear unremarkable. Possible small hiatal hernia. The appendix is not definitely identified. No pericecal inflammatory changes seen. No free fluid. No free air. Is unremarkable. ABDOMINAL WALL: No significant hernia is appreciated. LYMPH NODES: No pathologically enlarged lymph nodes. VASCULAR: Normal caliber aorta PELVIC VISCERA: Unremarkable. OSSEOUS STRUCTURES: No suspicious bony process.. CT/CT abdomen pelvis w IV con IMPRESSION: 1. Hepatomegaly. 2. No acute intra-abdominal findings identified to explain the patient's pain. 3. Small hiatal hernia. 4. Additional findings and details as above. Fleischner guidelines were followed. Electronically signed by: Jaziel Prince MD 04/28/2024 06:50 PM EDT
[2024-04-28 09:27] VITALS: BP 149/99; PULSE 81; RESP 19; TEMP 37.1; O2SAT 98; BMI 73.0
--- NOTE | 2024-04-28 09:31 | ECG_ITS ---
Test Reason : CHEST PAIN Blood Pressure : / mmHG Vent. Rate : 078 BPM Atrial Rate : 078 BPM P-R Int : 108 ms QRS Dur : 092 ms QT Int : 396 ms P-R-T Axes : 053 005 022 degrees QTc Int : 451 ms Sinus rhythm with short UT Minimal voltage criteria for LVH, may be normal variant ( R in aVL ) Borderline ECG No previous ECGs available Referred By: Generic ED Physician Electronically Signed By:JAYMIE MONDRAGON
[2024-04-28 09:47] LABS: MANUAL DIFF FLAG NO
[2024-04-28 09:50] LABS: Basophils Percent Auto 0.5 % (0-2); Eosinophils Absolute Auto 0.1 X10*3/uL (0.0-0.4); Eosinophils Percent Auto 1.8 % (0-4); Hematocrit 36.9 % (37.0-47.0); Hemoglobin 12.5 g/dl (12.0-16.0); Imm Gran Abs Auto 0.01 X10*3/uL (0.00-0.03); Imm Gran Pct Auto 0.2 % (0.0-0.4); Lymphocytes Absolute Auto 1.8 X10*3/uL (1.2-4.9); Lymphocytes Percent Auto 32.6 % (20-40); Mean Corpuscular HGB Conc 33.9 g/dl (31.0-35.0); Mean Corpuscular Hemoglobin 30.7 pg (27.0-33.0); Mean Corpuscular Volume 90.7 fL (80.0-98.0); Mean Platelet Volume 8.7 fL (9.4-12.3); Monocytes Absolute Auto 0.5 X10*3/uL (0.1-1.2); Monocytes Percent Auto 8.1 % (2-11); Neutrophils Absolute Auto 3.2 x10*3/uL (2.0-8.3); Neutrophils Percent Auto 56.8 % (45-73); Platelet Count 386 X10*3/uL (160-400); Red Blood Count 4.07 X10*6/uL (4.20-5.50); Red Cell Distribution Width 14.1 % (11.0-16.0); White Blood Count 5.6 X10*3/uL (4.8-10.8)
[2024-04-28 10:06] LABS: Alanine Aminotransferase 18 U/L (0-31); Albumin Level 3.7 g/dL (3.5-5.0); Alkaline Phosphatase 76 U/L (39-117); Anion Gap 12 (12-20); Aspartate Amino Transferase 15 U/L (5-31); Bilirubin Direct 0.1 mg/dL (0.0-0.5); Bilirubin Total 0.3 mg/dL (0.0-1.0); Blood Urea Nitrogen 13 mg/dL (9-16); Calcium 8.8 mg/dL (8.4-10.2); Carbon Dioxide 26 mmol/L (22-29); Chloride 108 mmol/L (96-108); Creatinine Clr Calc Pharmacy 173.4; Estimated Glomerular Filt Rate > 60; Glucose Random 109 mg/dL (60-115); Lipase 11 U/L (8-78); Potassium 3.9 mmol/L (3.3-5.1); Sodium 142 mmol/L (135-145); Total Protein 6.9 g/dL (6.5-8.0)
[2024-04-28 10:22] LABS: Troponin-I High Sensitivity < 2.7 ng/L (<3.5-17.0)
--- NOTE | 2024-04-28 14:12 | ED.GENADULT ---
HPI - General Adult General Chief complaint: Abdominal Pain Stated complaint: cp-l arm/leg pain-swelling Time Seen by Provider: 04/28/24 14:08 Source: patient Mode of arrival: ambulatory Limitations: no limitations History of Present Illness HPI narrative: This is a 38-year-old woman with a past history of anxiety/depression, asthma, GERD, hypertension, PTSD, OCD and IBS who presents for evaluation of left upper quadrant pain and left lower extremity pain/edema. Patient states that she recently had an abscess that spontaneously drained on her left abdominal wall. She reports taking antibiotics for. She states that she fell 2 days ago and was seen at [facility]. She states that she has previously lacerated her spleen after a fall and she reports that she is concerned for another splenic laceration. She states that when she was evaluated at [facility] they did not evaluate her spleen. She states persistent left upper quadrant pain. She states no vomiting. She states no changes in bowel habits or urinary symptoms. She states no back pain. She states no associated head strike or loss of consciousness. She states no headache or neck pain. She has no chest pain or difficulty breathing. She states that she also noted some swelling in her left leg associated with the pain. She states no trauma to her leg. She states no paresthesias. Related Data Home Medications ?Medication ?Instructions ?Recorded ?Confirmed gabapentin 800 mg tablet 800 mg PO BID 11/02/21 04/28/24 propranolol 10 mg tablet 20 mg PO BID 04/15/24 04/28/24 Previous Rx's ?Medication ?Instructions ?Recorded mupirocin calcium 2 % topical cream 1 applic topical BID #30 grams 05/18/20 mupirocin 2 % topical ointment 1 appl topical BID 10 days #22 12/11/20 grams tizanidine 2 mg tablet 2 mg PO Q8H PRN muscle spasticity 11/12/21 5 days #15 tabs prednisone 20 mg tablet 20 mg PO DAILY 3 days #3 tabs 08/18/22 hydrochlorothiazide 25 mg tablet 25 mg PO DAILY 30 days #30 tabs 01/29/23 cwmgazunwy-hwcpxsgudmhkd-gapjdaoe 1 cap PO Q6H PRN pain 3 days #12 07/10/23 50 mg-325 mg-40 mg capsule caps ibuprofen 600 mg tablet 600 mg PO TID 7 days #21 tabs 08/18/23 sumatriptan succinate 25 mg tablet See Rx Instructions PO .COMPLEX 30 09/17/23 days #10 tabs pantoprazole 40 mg tablet,delayed 40 mg PO DAILY 90 days #90 tabs 03/02/24 release albuterol sulfate 90 mcg/actuation 2 puff inhalation QID #8.5 ea 04/15/24 aerosol inhaler ondansetron 8 mg disintegrating 8 mg PO Q12H PRN nausea and 04/15/24 tablet vomiting 5 days #10 tabs sulfamethoxazole 800 1 tab PO BID 7 days #14 tabs 04/15/24 mg-trimethoprim 160 mg tablet (Bactrim DS) Allergies Allergy/AdvReac Type Severity Reaction Status Date / Time iohexol [From Omnipaque] Allergy Unknown Itching Verified 04/28/24 17:45 morphine Allergy Unknown throat Verified 04/28/24 09:29 closing BEES, CATS, DOGS Allergy Unknown rash Uncoded 04/28/24 09:29 Vicodin Allergy Unknown throat Uncoded 04/28/24 09:29 closing Prilosec AdvReac Unknown nose bleeds Uncoded 04/28/24 09:29 Review of Systems Review of Systems: ROS as per [facility] Past Medical History Medical History (Updated 04/28/24 @ 16:34 by Erick Nathan MD) HTN (hypertension) GERD (gastroesophageal reflux disease) Anxiety Depression Asthma Surgical History H/O breast surgery Social History Social History Housing: House Alcohol intake: never Patient Tobacco Use Status: Never used Tobacco Smoked in Last 30 Days: No e-Cigarette/Vaping Use: Never Used Second Hand Smoke Exposure: No Use of substances other than those prescribed or required for medical reasons: No Advance Directives: No Advance Directives Information Provided: No Do you have a plan to hurt others: No Plan Patient : No service: No Current occupational status: disabled Current occupational exposures/hazards: No Cognitive needs: No Hearing needs: No Vision needs: Yes Physical Exam ED Vital Signs: Vital Signs - 24 hr 04/28/24 09:27 04/28/24 14:14 04/28/24 16:12 Temperature 98.7 F 98.4 F 97.6 F Pulse Rate 81 70 72 Respiratory Rate 19 16 17 Blood Pressure 149/99 H 133/88 125/71 Pulse Oximetry 98 99 98 Oxygen Delivery Method Room Air Room Air Room Air 04/28/24 17:43 04/28/24 18:59 Temperature 97.7 F 97.7 F Pulse Rate 82 82 Respiratory Rate 16 16 Blood Pressure 156/96 H 156/96 H Pulse Oximetry 97 97 Oxygen Delivery Method Room Air Room Air BMI result Body Mass Index 73.0 Gen: NAD, AOx3 HEENT: NCAT, EOMI, normal conjunctiva CV: RRR, 2+ bilateral radial and DP/PT pulses Pulm: CTAB, no increased work of breathing GI: Soft, left upper and lateral abdominal tenderness to palpation without overlying erythema/fluctuance/induration, no rebound, guarding or rigidity Neuro: Grossly non focal, sensation intact to light touch in bilateral lower extremity dermatomes L2-S2, equal strength to bilateral lower extremities MSK: Tenderness to palpation to the left lower extremity without overlying skin changes, no extremity deformity, bilateral lower extremity compartments are soft with intact overlying skin Medications Administered Discontinued Medications Generic Name Dose Route Start Last Admin Trade Name Freq PRN Reason Stop Dose Admin Diphenhydramine HCl 25 mg 04/28/24 17:39 04/28/24 17:42 Diphenhydramine Hcl 50 Mg/Ml Vial IVPUSH 04/28/24 17:40 25 mg ONCE ONE Administration Iohexol 100 ml 04/28/24 17:50 04/28/24 17:50 Iohexol 350 Mg/Ml 100 Ml Infus..Btl IV 04/28/24 17:51 100 ml ONCE ONE Administration Medical Decision Making Medical Decision Making MDM Narrative: Differential diagnosis includes, but is not limited to contusion, blunt abdominal trauma, DVT, herpes zoster. Patient is treated supportively here in the emergency room with 30 mg IM Toradol. Patient is afebrile and hemodynamically stable on room air. Exam is benign and reassuring. There is no evidence to suggest infectious etiology of symptoms such as with cellulitis or abscess. I independently reviewed the patient's labs and EKG as below. Kurt - RN brings to my attention that patient is having pruritus after receiving contrast for a CT. Patient reports after receiving contrast for the CT she began to feel itchy around her eyes and in her throat. She states no dysphagia. She states no chest pain or difficulty breathing. She states no abdominal pain, nausea or vomiting. Given a single organ involvement I have very low clinical suspicion for anaphylaxis. We will provide 25 mg IV Benadryl for symptom relief and continue to monitor. I reviewed radiology impression ultrasound and CT imaging results as below, which are unremarkable for any acute findings. 1854 - On re-examination, patient is well-appearing and in no acute distress. ?Patient states symptoms have resolved. ?There is no indication for further emergent evaluation in this otherwise well-appearing patient as above. ?Patient is provided written and verbal instructions, educational materials, recommendations for outpatient follow-up, strict return precautions and teach back is performed. ?Patient states understanding and agreement with plan of care. ?Patient is discharged home in stable and improved condition. Admission/Observation Consideration of admission/observation: Escalation of care including admission/observation considered Lab Data MDM Lab Attestation statement: I reviewed the patient's lab results. I reviewed patient's labs including CBC, metabolic panel, troponin and lipase, which are all benign and reassuring. 04/28/24 09:42 04/28/24 09:42 Labs: Lab Results 04/28/24 Range/Units 09:42 WBC 5.6 (4.8-10.8) X10*3/uL RBC 4.07 L (4.20-5.50) X10*6/uL Hgb 12.5 (12.0-16.0) g/dl Hct 36.9 L (37.0-47.0) % MCV 90.7 (80.0-98.0) fL MCH 30.7 (27.0-33.0) pg MCHC 33.9 (31.0-35.0) g/dl RDW 14.1 (11.0-16.0) % Plt Count 386 (160-400) X10*3/uL MPV 8.7 L (9.4-12.3) fL Immature Gran % (Auto) 0.2 (0.0-0.4) % Neut % (Auto) 56.8 (45-73) % Lymph % (Auto) 32.6 (20-40) % Gaines % (Auto) 8.1 (2-11) % Eos % (Auto) 1.8 (0-4) % Baso % (Auto) 0.5 (0-2) % Lymph # (Auto) 1.8 (1.2-4.9) X10*3/uL Gaines # (Auto) 0.5 (0.1-1.2) X10*3/uL Eos # (Auto) 0.1 (0.0-0.4) X10*3/uL Baso # (Auto) 0.0 (0.0-0.2) X10*3/uL Abs Immat Gran (auto) 0.01 (0.00-0.03) X10*3/uL Absolute Neuts (auto) 3.2 (2.0-8.3) x10*3/uL Absolute Nucleated RBC 0.000 (0.0-0.012) X10*3/uL Nucleated RBC % (auto) 0.0 (0.0-0.2) /100WBC Sodium 142 (135-145) mmol/L Potassium 3.9 (3.3-5.1) mmol/L Chloride 108 (96-108) mmol/L Carbon Dioxide 26 (22-29) mmol/L Anion Gap 12 (12-20) BUN 13 (9-16) mg/dL Creatinine 0.79 (0.5-1.4) mg/dL Estim Creat Clear Calc 173.4 Estimated GFR > 60 Random Glucose 109 (60-115) mg/dL Calcium 8.8 (8.4-10.2) mg/dL Total Bilirubin 0.3 (0.0-1.0) mg/dL Direct Bilirubin 0.1 (0.0-0.5) mg/dL AST 15 (5-31) U/L ALT 18 (0-31) U/L Alkaline Phosphatase 76 (39-117) U/L Troponin I High Sens < 2.7 (<3.5-17.0) ng/L Total Protein 6.9 (6.5-8.0) g/dL Albumin 3.7 (3.5-5.0) g/dL Lipase 11 (8-78) U/L Beta HCG, Quant < 2 mIU/mL Independent Interpretation I performed an independent interpretation of an: EKG Interpretation: I independently reviewed and interpreted the patient's EKG, which demonstrates sinus rhythm at 78 beats per minute, DC 1 awaits, QRS 96, QTC 451, no STEMI Radiology Impression Discussion of test interpretation with radiology: I have reviewed the radiologist's reading. Radiologist Impression: US/US venous duplex LE LT IMPRESSION: No evidence of deep venous thrombosis involving the left lower extremity, given the above described limitations. Electronically signed by: Neto Ye MD 04/28/2024 04:05 PM EDT RP Dictated By: Neto Ye MD Signed By: <Electronically signed by Neto Ye MD in [place]> 04/28/[address]/CT abdomen pelvis w IV con IMPRESSION: 1. Hepatomegaly. 2. No acute intra-abdominal findings identified to explain the patient's pain. 3. Small hiatal hernia. 4. Additional findings and details as above. Fleischner guidelines were followed. Electronically signed by: Jaziel Prince MD 04/28/2024 06:50 PM EDT RP Dictated By: Jaziel Prince MD Signed By: <Electronically signed by Jaziel Prince MD in OV> 04/28/24 1540 Discharge Plan Discharge Clinical Impression: Left leg pain, Left-sided chest wall pain Patient Disposition: Home, Self-Care Instructions: Chest Pain (DC), Leg Pain (ED) Additional Instructions: You were seen and evaluated in the emergency room. Your vital signs were normal. Your blood work, EKG, ultrasound and CT scan were normal. You were given a medicine called Toradol here in the emergency room. This medication is similar to ibuprofen and other nonsteroidal anti-inflammatory drugs (NSAIDs). For this reason please wait 12 hours before taking any ibuprofen or NSAIDs. After 12 hours, you may continue taking 400-600 mg ibuprofen every 6-8 hours as needed for pain. Please always take with food and water. You may additionally take 1000 mg Tylenol every 8 hours for pain. Please follow-up with your primary care doctor in the next 5-7 days. ? Please return to the emergency room if you develop any worsening symptoms including, but not limited to fever, blistering rash, chest pain or difficulty breathing. ? Prescriptions: No Action mupirocin 2 % ointment 1 appl topical BID 10 Days Qty: 22 0RF tizanidine 2 mg tablet 2 mg PO Q8H PRN (Reason: muscle spasticity) 5 Days Qty: 15 0RF prednisone 20 mg tablet 20 mg PO DAILY 3 Days Qty: 3 0RF hydrochlorothiazide 25 mg tablet 25 mg PO DAILY 30 Days Qty: 30 2RF yhqtisrcps-yqmfmkwgocyfz-sfar 50-325-40 mg capsule 1 cap PO Q6H PRN (Reason: pain) 3 Days Qty: 12 0RF ibuprofen 600 mg tablet 600 mg PO TID 7 Days Qty: 21 0RF sumatriptan succinate 25 mg tablet See Rx Instructions PO .COMPLEX 30 Days Qty: 10 1RF Rx Instructions: take 1 tab at onset of headache; if no relief may repeat 1 tab after at least 2 hrs; max = 4 tabs/24 hr PO pantoprazole 40 mg tablet,delayed release (DR/EC) 40 mg PO DAILY 90 Days Qty: 90 1RF mupirocin calcium 2 % cream 1 applic topical BID Qty: 30 0RF gabapentin 800 mg tablet 800 mg PO BID propranolol 10 mg tablet 20 mg PO BID sulfamethoxazole-trimethoprim [Bactrim DS] 800-160 mg tablet 1 tab PO BID 7 Days Qty: 14 0RF albuterol sulfate 90 mcg/actuation HFA aerosol inhaler 2 puff inhalation QID Qty: 8.5 0RF ondansetron 8 mg tablet,disintegrating 8 mg PO Q12H PRN (Reason: nausea and vomiting) 5 Days Qty: 10 0RF Interventions: ED Discharge Assessment Last Done: 04/28/24 18:59 Print Language: Divehi
[2024-04-28 14:14] VITALS: BP 133/88; PULSE 70; RESP 16; TEMP 36.9; O2SAT 99
--- NOTE | 2024-04-28 14:37 | PC.NURSE ---
20gIV placed in the right AC - patent/intact. pt waiting to have CT as well as ultrasound completed at this time. plan of care ongoing.
--- NOTE | 2024-04-28 14:45 | PC.NURSE ---
pt to ultrasound at this time.
[2024-04-28 16:12] VITALS: BP 125/71; PULSE 72; RESP 17; TEMP 36.4; O2SAT 98
--- NOTE | 2024-04-28 17:19 | PC.NURSE ---
pt continues to rest comfortably in stretcher in no apparent distress. waiting for CT to be completed at this time. plan of care ongoing.
[2024-04-28 17:20] LABS: HCG Quantitative < 2 mIU/mL
[2024-04-28] MEDS: diphenhydrAMINE HCL 50 MG/ML VIAL 25 MG IVPUSH (17:42)
[2024-04-28 17:43] VITALS: BP 156/96; PULSE 82; RESP 16; TEMP 36.5; O2SAT 97
--- NOTE | 2024-04-28 17:44 | PC.NURSE ---
pt having CT w/ contrast completed at this time. CT stopped early at this time d/t pt verbalizing feeling extreme itchiness in face/eyes/throat when IV contrast was injected. pt brought back to 6H. no sob/wob noted. respirations even/unlabored. lung sounds CTA. no hives noted. no angioedema present. vss and up to date. pt medicated per provider order. effectiveness pending. plan of care ongoing.
[2024-04-28] MEDS: iohexoL 350 MG/ML 100 ML INFUS..BTL IV (17:50)
[2024-04-28 18:59] VITALS: BP 156/96; PULSE 82; RESP 16; TEMP 36.5; O2SAT 97
== END 2024-04-28 19:04 | disposition home or self-care (01) ==
PROVIDERS: Emergency Provider Emergency Medicine; PCP Physician Assistant
DX: M79.605 Pain in left leg (principal); R07.89 Other chest pain; R60.0 Localized edema; R10.12 Left upper quadrant pain; I10 Essential (primary) hypertension; J45.909 Unspecified asthma, uncomplicated; Z79.899 Other long term (current) drug therapy
CPT/HCPCS: 36415; 74177; 80048; 80076; 83690; 84484; 84702; 85025; 93005; 93971; 99285; J1200; Q9967

== ENCOUNTER 2024-06-25 11:21 | Outpatient (AMB) | payer OTHER, SELFPAY ==
[2024-06-25 11:33] VITALS: BP 138/78; PULSE 78; O2SAT 98; BMI 72.7
--- NOTE | 2024-06-25 11:33 | MHC.PC.OV ---
Vital Signs 06/25/24 11:33 Height 5 ft 5 in Weight 437 lb BMI 72.7 BP 138/78 Blood Pressure Location Lt brachial Position Sitting Pulse 78 Pulse Source Pulse Oximeter Pulse Oximetry (%) 98 Oxygen Delivery Method Room Air Intake Visit Reasons: follow up nerve pain after shingles Allergies iohexol [From Omnipaque] Allergy (Unknown, Verified 06/25/24 11:34) Itching morphine Allergy (Unknown, Verified 06/25/24 11:34) throat closing BEES, CATS, DOGS Allergy (Unknown, Uncoded 06/25/24 11:34) rash Vicodin Allergy (Unknown, Uncoded 06/25/24 11:34) throat closing Prilosec Adverse Reaction (Unknown, Uncoded 06/25/24 11:34) nose bleeds Medication List - Last Reconciled 06/25/24 by Wendy Núñez PA-C albuterol sulfate 90 mcg/actuation 2 puffs inhalation QID tzlvjgefgy-[id number]-[id number] 50-325-40 mg 1 cap PO Q6H PRN 3 days gabapentin 800 mg PO BID hydrochlorothiazide 25 mg PO DAILY 30 days ibuprofen 600 mg PO TID 7 days lidocaine 5% 1 patch topical DAILY mupirocin 2% 1 appl topical BID 10 days mupirocin calcium 2% 1 appl topical BID ondansetron 8 mg PO Q12H PRN 5 days pantoprazole 40 mg PO DAILY 90 days propranolol 20 mg PO BID sumatriptan succinate take 1 tab at onset of headache; if no relief may repeat 1 tab after at least 2 hrs; max = 4 tabs/24 hr PO 30 days tizanidine 2 mg PO Q8H PRN 5 days Tobacco use date assessed: 06/25/24 Dental Screening Dental Screen Date: 04/28/24 HPI follow up nerve pain after shingles HPI Details 59-year-old male with past medical history of diabetes mellitus, hypercholesterolemia last seen by Dr. Tenorio March 2024 coming in for annual exam.? In review of the notes patient was seen by Orthopedics 05/19/2024 for trigger finger surgery was postponed due to elevated A1c. Patient states after taking the antiviral the rash subsided very quickly and has crusted over. She has been using lidocaine patches, ibuprofen and gabapentin which has been helping with the pain. She has been able to sleep at night using this combination but does still have tenderness to palpation of the entire left side. [facility] Medical History (Updated 06/25/24 @ 12:43 by Wendy Núñez PA-C) HTN (hypertension) GERD (gastroesophageal reflux disease) Anxiety Depression Asthma Surgical History H/O breast surgery Social History Housing: House Alcohol intake: never Patient Tobacco Use Status: Never used Tobacco Tobacco use type: Cigarette e-Cigarette/Vaping Use: Never Used Second Hand Smoke Exposure: No service: No Current occupational status: disabled Current occupational exposures/hazards: No Cognitive needs: No Hearing needs: No Vision needs: Yes Questionnaire PHQ-9 Over the last 2 weeks, how often have you been bothered by any of the following problems? 1. Little interest or pleasure in doing things: more than half the days 2. Feeling down, depressed, or hopeless: nearly every day 3. Trouble falling or staying asleep, or sleeping too much: more than half the days 4. Feeling tired or having little energy: more than half the days 5. Poor appetite or overeating: more than half the days 6. Feeling bad about yourself - or that you are a failure or have let yourself or your family down: nearly every day 7. Trouble concentrating on things, such as reading the newspaper or watching television: several days 8. Moving or speaking so slowly that other people could have noticed. Or the opposite - being so fidgety or restless that you have been moving around a lot more than usual: several days 9. Thoughts that you would be better off or of hurting yourself in some way: not at all Total score: 16 Depression Screening Interpretation: Positive Depression Screening Done: Yes 81423 - PHQ-9 Billing: Yes Source: Developed by Drs. Héctor Tilley, Laura Ortiz, Sharif Duenas and colleagues, with an educational stella from [employer] Thrive Questionnaire Date Thrive assessed: 06/25/24 I am a: Patient What is your living situation today?: I choose not to answer this question Within the past 12 months, did the food you bought not last and you didn't have the money to get more?: Never true Within the past 12 months, did you worry whether your food would run out before you got money to buy more?: Never true Do you have trouble paying for medicines?: No Do you have trouble getting transportation to medical appointments?: Yes Do you have trouble paying your heating and electricity bill?: No Do you have trouble taking care of your child, family member or friend?: No Do you have trouble with day-to-day activities such as bathing, preparing meals, shopping, managing finances, etc.?: Yes Are you currently unemployed and looking for a job?: No Are you interested in more education?: No Please select the resources that you would like help with: Transportation Currently or been in a relationship where the following occur: No concerns reported THRIVE Score: 1 AUDIT C Alcohol Use Questionnaire (AUDIT-C) 3. How often do you have six or more drinks on one occasion?: Never Total Score: 0 PILY-7 AMB Questionnaire PILY-7 Date PILY - 7 assessed: 04/28/24 Source: Developed by Drs. Héctor Tilley, Laura Ortiz, Sharif Duenas and colleagues, with an educational stella from [employer] Review of Systems Const Denies body aches, Denies chills, Denies fever(s), Denies headache(s) and Denies poor appetite Eyes Reports no additional complaints ENT Denies dizziness and Denies headache(s) Card Denies chest pain and Denies dyspnea Resp Denies cough and Denies dyspnea GI Denies abdominal pain, Denies nausea and Denies vomiting Reports no additional complaints Musc Reports no additional complaints and Denies abnormal gait Skin/Breast Reports system reviewed and no additional complaints, except as documented Neuro Denies abnormal gait, Denies dizziness and Denies headache(s) Psych Reports no additional complaints Physical exam (Primary Care) Vital Signs: Last Vital Signs Pulse 78 06/25/24 11:33 BP 138/78 06/25/24 11:33 Pulse Ox 98 06/25/24 11:33 Oxygen Delivery Method Room Air 06/25/24 11:33 BMI result Body Mass Index 72.7 Tobacco/Smoking Status: Tobacco use Status Tobacco use date assessed 06/25/24 06/25/24 11:40 Patient Tobacco Use Status Never used Tobacco 06/25/24 11:40 Tobacco use type Cigarette 06/25/24 11:40 e-Cigarette/Vaping Use Never Used 06/25/24 11:40 PHQ-9: PHQ-9 Score PHQ-9: Total score 16 06/25/24 11:40 Depression Screening Interpretation: Positive Thrive Assessment: Date of Thrive Assessment Date Thrive assessed 06/25/24 06/25/24 11:40 Currently or been in a relationship where the following occur: No concerns reported Const General: cooperative, healthy appearing, comfortable and no acute distress Orientation/consciousness: patient oriented x3 HENMT Head: Yes normocephalic Ears: hearing grossly normal bilaterally General nose exam: Normal external nose present Eyes General: appearance normal, both eyes and all related structures Conjunctivae: conjunctivae normal Neck Neck: Yes full ROM and Yes no lymphadenopathy Resp Effort & Inspection: normal respiratory effort Auscultation: clear to auscultation bilaterally, no crackles, no rales, no rhonchi and no wheezes Cardio Rate: regular rate Rhythm: regular rhythm Skin Other: Crusted lesions in a dermatomal pattern along the left side of the abdomen no evidence of cellulitis Neuro General: patient oriented x3 Gait exam (Neuro): Normal gait present Extrem General: Yes normal to inspection, Yes full ROM and No edema Psych Affect: normal affect Attitude: cooperative Insight: Good insight present (Psych) Judgement: Good judgement present (Psych) Coding Level of Care Code Est Pt Level 3 (01210) Diagnoses Shingles B02.9 Additional Codes PHQ-9 - 67324 - PHQ-9 Billing: Yes ([id number]) Assessment & Plan Assessment & Plan (1) Shingles: Code(s): B02.9 - Zoster without complications Category: Medical Plan: All lesions have ruptured and crusted over and patient is no longer contagious. She does mentioned the rash has been itchy advised using Benadryl cream and avoid itching. No evidence of cellulitis at this time. Advised to continue using ibuprofen, lidocaine patches, and gabapentin as needed for pain. Do limit the amount of ibuprofen you use and make sure to take his medication on a full stomach and was plenty of water. Patient agrees to reach out if pain persists. Plan This note was constructed using voice recognition software. While every effort has been made to ensure accuracy and bunch trimmer mold, still areas may have been included sometimes these areas may affect the content or meeting of the given symptoms. Total time spent caring for the patient today was 20 minutes. This includes time spent before the visit reviewing the chart, time spent during the visit, and time spent after the visit and documentation. Orders: Referrals Optometry Referral Z00.00 - Encounter for general adult medical examination without abnormal findings Medications: New diphenhydramine-zinc acetate 2-0.1 % (Benadryl Extra Strength) 1 appl topical BID 28.3 grams 0RF Changed From ibuprofen 600 mg PO TID 7 days 21 tabs 0RF M79.672 - Pain in left foot To ibuprofen 600 mg PO BID 15 days 30 tabs 0RF M79.672 - Pain in left foot Refilled lidocaine 5% leave on most painful area for up to 12 hrs 1 patch topical DAILY 30 ea 1RF
== END 2024-06-25 12:00 | disposition home or self-care (01) ==
DX: B02.9 Zoster without complications (principal)

== ENCOUNTER → 2024-06-25 11:21 | Outpatient (BNVA) | payer OTHER, SELFPAY | DX: B02.9 Zoster without complications (principal) | CPT/HCPCS: 96127; 99212 ==

== ENCOUNTER 2025-02-17 08:05 | Outpatient (AMB) | payer OTHER, SELFPAY ==
--- NOTE | 2025-02-17 08:07 | A.OFFPC_ITS ---
Intake Visit Reasons: continual headaches, shingles Underground Supervisor Required: No Accompanied by: Self / Same As Patient Allergies iohexol (From Omnipaque) Allergy (Unknown, Verified 02/17/25 08:12) Itching morphine Allergy (Unknown, Verified 02/17/25 08:12) throat closing BEES, CATS, DOGS Allergy (Unknown, Uncoded 06/25/24 11:34) rash Vicodin Allergy (Unknown, Uncoded 06/25/24 11:34) throat closing Prilosec Adverse Reaction (Unknown, Uncoded 06/25/24 11:34) nose bleeds Medication List - Last Reconciled 02/17/25 by Wendy Núñez PA-C albuterol sulfate 90 mcg/actuation 2 puffs inhalation QID cqfkjmalgj-onvaypntwauet-iyjt 50-325-40 mg 1 cap PO Q6H PRN 3 days diphenhydramine-zinc acetate 2-0.1 % (Benadryl Extra Strength) 1 appl topical BID gabapentin 800 mg PO BID hydrochlorothiazide 25 mg PO DAILY 30 days ibuprofen 600 mg PO BID lidocaine 5% 1 patch topical DAILY mupirocin 2% 1 appl topical BID 10 days mupirocin calcium 2% 1 appl topical BID ondansetron 8 mg PO Q12H PRN 5 days pantoprazole 40 mg PO DAILY 90 days propranolol 20 mg PO BID sumatriptan succinate take 1 tab at onset of headache; if no relief may repeat 1 tab after at least 2 hrs; max = 4 tabs/24 hr PO 30 days tizanidine 2 mg PO Q8H PRN 5 days Tobacco use date assessed: 02/17/25 Dental Screening Dental Screen Date: 02/17/25 Did you have a dental visit in the last 12 months?: No Did you have a dental problem in the last 6 months where you did not have access to dental care?: No Was dental information given to patient?: Patient has dentist HPI continual headaches, shingles HPI Details 39-year-old female with past medical his tory of anxiety, asthma, GERD, hypertension, migraines, depression, PTSD, OCD last seen 06/2024 presenting via telehealth for acute problem. Patient tells us today she has been having left-sided migraines with visual changes on the left side without aura for the past 6 months. She has migraines on a daily basis that typically will last until the next day and rates them a 10/10 pain. They are often accompanied with complete left-sided visual loss and left-sided facial numbness and tingling and occasionally complete left-sided weakness. She believes it to be related to her history of shingles which was on the left abdomen. She has been using Tylenol for the migraines and propranolol as needed which she does not find beneficial. She also has tenderness to the back of the scalp on the left side when she has her migraines. Denies any nausea or vomiting, chest pain or shortness of breath. She does not identify any triggers for the migraines but does state she has been increasingly stressed lately. She also mentions with some of the migraines she will have nosebleeds. [facility] Medical History HTN (hypertension) GERD (gastroesophageal reflux disease) Anxiety Depression Asthma Surgical History H/O breast surgery Social History Housing: House Alcohol intake: never Patient Tobacco Use Status: Never used Tobacco e-Cigarette/Vaping Use: Never Used Second Hand Smoke Exposure: No service: No Current occupational status: disabled Current occupational exposures/hazards: No Cognitive needs: No Hearing needs: No Vision needs: Yes Questionnaire PHQ-9 Over the last 2 weeks, how often have you been bothered by any of the following problems? 1. Little interest or pleasure in doing things: more than half the days 2. Feeling down, depressed, or hopeless: several days 3. Trouble falling or staying asleep, or sleeping too much: more than half the days 4. Feeling tired or having little energy: nearly every day 5. Poor appetite or overeating: several days 6. Feeling bad about yourself - or that you are a failure or have let yourself or your family down: several days 7. Trouble concentrating on things, such as reading the newspaper or watching television: not at all 8. Moving or speaking so slowly that other people could have noticed. Or the opposite - being so fidgety or restless that you have been moving around a lot more than usual: not at all 9. Thoughts that you would be better off or of hurting yourself in some way: not at all Total score: 10 Depression Screening Interpretation: Positive Depression Screening Follow-up: Existing condition Depression Screening Done: Yes Source: Developed by Drs. Héctor Tilley, Laura Ortiz, Sharif Duenas and colleagues, with an educational stella from [employer]. Thrive Questionnaire Date Thrive assessed: 02/17/25 I am a: Patient What is your living situation today?: I have a steady place to live Within the past 12 months, did the food you bought not last and you didn't have the money to get more?: Never true Within the past 12 months, did you worry whether your food would run out before you got money to buy more?: Never true Do you have trouble paying for medicines?: No Do you have trouble getting transportation to medical appointments?: No Do you have trouble paying your heating and electricity bill?: No Do you have trouble taking care of your child, family member or friend?: No Do you have trouble with day-to-day activities such as bathing, preparing meals, shopping, managing finances, etc.?: No Are you currently unemployed and looking for a job?: No Are you interested in more education?: No Please select the resources that you would like help with: None Currently or been in a relationship where the following occur: No concerns reported THRIVE Score: 0 AUDIT C Alcohol Use Questionnaire (AUDIT-C) 1. How often do you have a drink containing alcohol?: Never Total Score: 0 PILY-7 AMB Questionnaire PILY-7 Date PILY - 7 assessed: 02/17/25 Feeling nervous, anxious, or on edge: 1 = Several days Not being able to stop or control worryin = Not at all Worrying too much about different things: 1 = Several days Trouble relaxin = Nearly every day Being so restless that it is hard to sit still: 0 = Not at all Becoming easily annoyed or irritable: 3 = Nearly every day Feeling afraid as if something awful might happen: 0 = Not at all Total PILY-7 score (0-4 normal; 5-9 mild; 10-14 moderate; 15-21 severe): 8 Source: Developed by Laura Escalante B.W. Angel, Sharif Duenas and colleagues, with an educational stella from [employer]. Review of Systems Const Denies body aches, Denies chills, Denies fever(s), Reports headache(s), Denies poor appetite and Reports weakness Eyes Reports as per HPI ENT Reports as per HPI, Denies dysphagia, Reports dizziness, Reports headache(s) and Denies odynophagia Card Denies chest pain, Denies syncope, Denies edema, Denies lightheadedness and Denies dyspnea Resp Denies cough and Denies dyspnea GI Denies abdominal pain, Denies dysphagia, Denies nausea, Denies odynophagia and Denies vomiting Reports no additional complaints Musc Reports no additional complaints and Denies abnormal gait Skin/Breast Reports system reviewed and no additional complaints, except as documented Neuro Reports as per HPI, Denies abnormal gait, Reports dizziness, Denies syncope, Reports headache(s) and Reports weakness Psych Reports no additional complaints Physical exam (Primary Care) Vital Signs: Vital signs and physical exam not performed due to nature of telehealth visit Tobacco/Smoking Status: Tobacco use Status Tobacco use date assessed 02/17/25 02/17/25 08:13 Patient Tobacco Use Status Never used Tobacco 02/17/25 08:09 Tobacco use type 02/17/25 08:13 e-Cigarette/Vaping Use Never Used 02/17/25 08:09 PHQ-9: PHQ-9 Score PHQ-9: Total score 10 02/17/25 08:13 Depression Screening Interpretation: Positive Depression Screening Follow-up: Existing condition Thrive Assessment: Date of Thrive Assessment Date Thrive assessed 02/17/25 02/17/25 08:09 Currently or been in a relationship where the following occur: No concerns reported Telehealth Telehealth Telehealth Platform: Telephone Location of provider rendering services: practice address Location of patient: address on file Patient Identification confirmed using: Name, : Yes Telehealth method: voice only Patient verbally consented to treatment: Yes Patient verbally consented to billing insurance company: Yes Patient informed of any privacy concerns related to visit: Yes Coding Level of Care Code Tele Est Pt Level 4 (52325) Diagnoses Migraines G43.909 Facial numbness R20.0 Assessment & Plan Assessment & Plan (1) Migraines: Code(s): G43.909 - Migraine, unspecified, not intractable, without status migrainosus Category: Medical Plan: Given this is a telehealth appointment at patient request it is impossible to assess for neurological deficit. Based on her reported symptoms I do recommend having an urgent CAT scan of the head. Patient does note transportation issues as she is now living in [place]. Given these red flag symptoms I did recommend the patient go to the ED which was declined today. I did order for a stat CAT scan but due to transportation issues if she is unable to make it to this testing to go to [facility] as soon as possible. I reviewed with the patient red flag symptoms and when to present for re-evaluation. I also placed a referral to Neurology for further evaluation and treatment. Cat scan we will be with and without IV contrast and blood work has been ordered prior to the examination. For migraines I did state that propranolol is use as a preventative and not a treatment and she should take it daily instead of as needed. Patient declines using the medication this way. She also tells us that is sumatriptan does not work for her migraines. She also believes that her current headaches are not her typical migraines. (2) Facial numbness: Code(s): R20.0 - Anesthesia of skin Category: Medical Plan: See above Plan This note was constructed using voice recognition software. While every effort has been made to ensure accuracy and medical center representative, still areas may have been included sometimes these areas may affect the content or meeting of the given symptoms. Total time spent caring for the patient today was 20 minutes. This includes time spent before the visit reviewing the chart, time spent during the visit, and time spent after the visit and documentation. Orders: Orders Comprehensive Met. Panel Today G43.909 - Migraine, unspecified, not intractable, without status migrainosus CT head/brain wo/w IV con Today G43.909 - Migraine, unspecified, not intractable, without status migrainosus, R20.0 - Anesthesia of skin Referrals Neurology Referral G43.909 - Migraine, unspecified, not intractable, without status migrainosus, R20.0 - Anesthesia of skin Medications: Discontinued mupirocin 2% Discontinued Reason: Patient Completed Course 1 appl topical BID 10 days 22 grams 0RF sumatriptan succinate Discontinued Reason: Patient no longer taking take 1 tab at onset of headache; if no relief may repeat 1 tab after at least 2 hrs; max = 4 tabs/24 hr PO 30 days 10 tabs 1RF G43.909 - Migraine, unspecified, not intractable, without status migrainosus
--- OUTSIDE RECORDS SUMMARY | 2025-02-17 08:08 | XMS_ITS | Clinical Summary ---
Author Organization [facility] Address [address] [place] [address] Phone Care Team Providers Care Vocational Services Specialist Name Role Phone Wendy Núñez Primary Care Provider [phone] Allergies Active Allergy Reactions Criticality Noted Date Comments Bee Venom Protein (Honey Bee) 2023 Cat Dander 06/08/2024 Dog Dander 06/08/2024 Hydrocodone 06/08/2024 Lactose 06/08/2024 Morphine 06/08/2024 Omeprazole 06/08/2024 Surgical History Surgery Date Site/Laterality Comments COLONOSCOPY PROCEDURE: HISTORICAL COLONOSCOPY; COMMENT: 2x (-2014) OTHER SURGICAL HISTORY PROCEDURE: UPPER GASTROINTESTINAL ENDOSCOPY IN; COMMENT: 2x (-2014) Medical History Medical History Date Comments Migraines DX:Migraines Tension headache DX:Tension head ache Anxiety DX:Anxiety Family History Medical History Relation Name Comments Diabetes Brother 1 multiple, brai n abnormalities needing surgery Colon cancer Brother 2 mid-30's Diabetes Father CVA, [place], deceas ed 54, IBS, GERD Hypertension Father Lymphoma Father Diabetes Maternal Grandfather Diabetes Maternal Grandmother Diabetes Mother HTN Hypertension Mother Diabetes Paternal Grandfather Diabetes Paternal Grandmother Diabetes Sister 1 multiple Other: Gastric cancer Uncle 1 patern al Relation Name Status Comments Brother 1 Brother 2 Brother 3 Father Maternal Grandfather Maternal Grandmother Mother Paternal Grandfather Paternal Grandmother Sister 1 Sister 2 Uncle 1 Uncle 2 Social History Tobacco Use Types Packs/Day Years Used Date Smoking Tobacco: Never Smokeless Tobacco: Never Alcohol Use Standard Drinks/Week Comments No 0 (1 standard drink = 0.6 oz pur e alcohol) Comments Unknown Sex and Gender Information Value Date Recorded Sex Assigned at Not on file Legal Sex Female 12:02 AM EST Gender Identity Not on file Sexual Orientation Not on file Obstetrics History Last Filed Vital Signs Vital Sign Reading Time Taken Comments Blood Pressure 123/83 06/09/2024 1:37 AM EST Pulse 78 06/09/2024 1:37 AM EST Temperature 37.2 C (99 F) 06/08/2024 10:45 PM EST Respiratory Rate 18 06/09/2024 1:37 AM EST Oxygen Saturation 98% 06/09/2024 1:37 AM EST Inhaled Oxygen Concentration - - Weight 147 kg (325 lb) 06/08/2024 3:57 PM EST Height 165.1 cm (5' 5 ) 06/08/2024 3:57 PM EST Body Mass Index 54.08 06/08/2024 3:57 PM EST Plan of Treatment Health Maintenance Due Date Last Done Comments Hepatitis B Vaccines (1 of 3 - 19+ 3-dose series) 2004 Cervical Cancer Screening: P ap Smear 2006 HIV Screening 09/02/2023 Hepatitis C Screening 09/02/2023 Social Influencers of Health Screening 09/02/2023 COVID-19 Vaccine ( - 2023-2 5 season) 2024 Depression Screening 08/04/2024 Influenza Vaccine (#1) 2025 05/09/2016 DTaP,Tdap,and Td Vaccines (3 - Td or Tdap) 08/04/2026 08/04/2016, 06/11/2011 Pneumococcal Vaccine: Pediatrics (0 to 5 Years) and At-Risk Patients (6 to 49 Years) Aged Out 03/30/2014 No longer eligible b ased on patient's age to complete this topic HIB Vaccines Aged Out No longer eligi ble based on patient's age to complete this topic HPV Vaccines Aged Out No longer eligi ble based on patient's age to complete this topic Hepatitis A Vaccines Aged Out No long er eligible based on patient's age to complete this topic IPV Vaccines Aged Out No longer eligi ble based on patient's age to complete this topic MMR Vaccines Aged Out No longer eligi ble based on patient's age to complete this topic Meningococcal ACWY Vaccine Aged Out N o longer eligible based on patient's age to complete this topic Meningococcal B Vaccine Aged Out No l onger eligible based on patient's age to complete this topic RSV Immunization Patients Under 20 months Aged Out No longer eligible b ased on patient's age to complete this topic Varicella Vaccines Aged Out No longer eligible based on patient's age to complete this topic Insurance [employer] Care Teams Vocational Services Specialist Relationship Specialty Start Date End Date Wendy Núñez PA [address] [place] [address], [address] [place] [address] PCP - General 06/09/24
== END 2025-02-17 08:27 | disposition home or self-care (01) ==
LOC: HO.HMCH 08:05
DX: G43.909 Migraine, unspecified, not intractable, without status migrainosus (principal); R20.0 Anesthesia of skin

== ENCOUNTER 2025-03-11 15:12 | Outpatient (REF) | payer OTHER, SELFPAY ==
--- NOTE | ~2025-03-11 | CT_ITS ---
EXAMINATION: CT HEAD WITHOUT CONTRAST CLINICAL INFORMATION: Migraine, not intractable, without status. COMPARISON: None available. TECHNIQUE: Contiguous axial imaging was performed from the skull base to vertex without intravenous administration of contrast. This CT examination was performed using dose optimization techniques as appropriate, variously including the following: *Automated exposure control *Adjustment of mA and/or kV according to patient size (this includes techniques or standardized protocols for targeted exams where dose is matched to indication/reason for exam; i.e. extremities or head) *Use of iterative reconstruction technique FINDINGS: There is no evidence of intracranial hemorrhage or extra-axial fluid collection. There is no mass effect, or edema. No CT evidence of acute territorial infarct. Ventricles, sulci, and cisterns are normal in size and configuration for patient age. No hydrocephalus. No midline shift. Negative hyperdense MCA sign. Negative insular ribbon sign. No white matter attenuation abnormalities. Partial empty sella. Within the right mid to posterior cingulate gyrus (series 4, image 57), there is a 7 x 5 x 5 mm hyperattenuating oval focus without surrounding edema suggesting probable calcification. There is a smaller similar focus in the right frontal white matter measuring 3 mm (series 4, image 53). This also likely represents a small focus of calcification. No surrounding edema. No additional calcifications identified. These are most likely cavernous malformations. Globes and orbital contents image normally. No extracranial soft tissue abnormalities. The paranasal sinuses, mastoid air cells, and tympanic cavities are normally aerated. No suspicious bony abnormalities. There are no acute fractures evident. CT/CT head/brain wo IV con IMPRESSION: 1. No intracranial hemorrhage or mass effect. No CT evidence of acute territorial infarct. 2. Rounded densities, suspected calcifications, as detailed in the right frontal white matter and right mid to posterior cingulate gyrus, without surrounding edema, most likely cavernous malformations. Further investigation with MRI could be considered. Electronically signed by: Carmine Serrano MD 03/11/2025 04:19 PM EDT
--- OUTSIDE RECORDS SUMMARY | 2025-03-11 15:14 | XMS_ITS | Clinical Summary ---
Author Organization [facility] [employer] [facility] [employer] Address [address] [place] [address] Care Team Providers Care Primary Care Pediatrician Name Role Phone Pcp, No Primary Care Provider [phone] Allergies No known active allergies Medications hydroCHLOROthia zide (HYDRODIURIL) 25 MG tablet Take 1 tablet (25 mg total) by mouth daily Active pantoprazole (PROTONIX) 20 MG tablet Take 1 tablet (20 mg total) by mouth daily Indications: heartburn Active Social History Tobacco Use Types Packs/Day Years Used Date Smoking Tobacco: Never Smokeless Tobacco: Never Tobacco Cessation:Counseling Given: Not Answered Comments Unknown Sex and Gender Information Value Date Recorded Sex Assigned at Not on file Legal Sex Female 12:26 PM EST Gender Identity Not on file Sexual Orientation Not on file Last Filed Vital Signs Vital Sign Reading Time Taken Comments Blood Pressure 135/78 08/02/2023 5:38 PM EST Pulse 92 08/02/2023 5:38 PM EST Temperature 36.2 C (97.1 F) 08/02/2023 5:38 PM EST Respiratory Rate 14 08/02/2023 5:38 PM EST Oxygen Saturation - - Inhaled Oxygen Concentration - - Weight - - Height - - Body Mass Index - - Plan of Treatment Health Maintenance Due Date Last Done Comments Depression: Screening Annual ly using PHQ-2/9 in Adults 18 yrs or above (or HM Modifier)([facility]) 2003 Hepatitis C Virus Infection in Adolescents and Adults: Screening (or Modifier) ([facility]) 2003 SDOH Screening Reminder: Hiral lorenzo for all adults ([facility]) 2003 Tobacco Smoking Cessation: i n Adults excluding Women: Behavioral and Pharmacotherapy Interventions ([facility]) 2003 DTaP/Tdap/Td Vaccines ([facility]) (1 - Tdap) 2004 Cervical Cancer Screenin 1-65 yrs of age (or Modifier) 2006 Cervical Cancer Screening: P ap every 3 yrs pts age 21-65 2006 Cervical Cancer: Pap Screeni ng with Modifier timing ([facility]) 2006 Cervical Cancer: hrHPV alone or with cotesting Pap for Pts 30-65yrs screening every 5yrs ([facility]) 2006 COVID-19 Vaccine Screening: Initial Series and Booster Status ([facility]) (2023- season) 2024 Flu Vaccination: Yearly for ages 18mos through 64 years (or Modifier)([facility]) 03/04/2025 Zoster/Shingles Vaccine Seri es Screening: Adults aged 18+ yrs (or HM Modifiers)([facility]) (1 of 2) 2035 Pneumococcal Vaccination Scr eening: Pts 0-19 & 19-49 yrs of age ([facility]) Aged Out No longer eligible based on patient's age to complete this topic Medical Devices Not on file Insurance [facility] [employer] Care Teams Primary Care Pediatrician Relationship Specialty Start Date End Date Pcp, No PCP - General Family Medicine 08/02/23
--- OUTSIDE RECORDS SUMMARY | 2025-03-11 15:14 | XMS_ITS | Clinical Summary ---
Author Organization [facility] Address [address] [place] [address] Phone Care Team Providers Care Dry Room Operator Name Role Phone Wendy Núñez Primary Care Provider [phone] Allergies Active Allergy Reactions Criticality Noted Date [...] cancer Brother 2 mid-30's Diabetes Father CVA, [place], deceas ed 54, IBS, GERD Hypertension Father [...] patient's age to complete this topic Insurance [facility] PL[facility] Care Teams Dry Room Operator Relationship Specialty Start Date End Date Wendy Núñez PA [address] [place] [address], [address] [place] [address] PCP - General 06/09/24
== END 2025-03-11 15:13 | disposition home or self-care (01) ==
LOC: HO.CT 15:12
DX: G43.909 Migraine, unspecified, not intractable, without status migrainosus (principal); R20.0 Anesthesia of skin
CPT/HCPCS: 70450

== ENCOUNTER → 2025-03-11 15:15 | Outpatient (BNV) | payer OTHER, SELFPAY | PROVIDERS: Visit Provider Radiology Diagnostic Radiology | DX: G43.909 Migraine, unspecified, not intractable, without status migrainosus (principal) | CPT/HCPCS: 70450 ==

== ENCOUNTER 2025-03-31 08:14 | Outpatient (AMB) | payer OTHER, SELFPAY ==
--- NOTE | 2025-03-31 08:14 | A.OFFPC_ITS ---
Intake Visit Reasons: discuss water in ear Metal Technician Required: No Sourcing Engineer: Not Required per policy Accompanied by: Self / Same As Patient Allergies iohexol (From Omnipaque) Allergy (Unknown, Verified 03/31/25 08:16) Itching morphine Allergy (Unknown, Verified 03/31/25 08:16) throat closing BEES, CATS, DOGS Allergy (Unknown, Uncoded 03/31/25 08:16) rash Vicodin Allergy (Unknown, Uncoded 03/31/25 08:16) throat closing Prilosec Adverse Reaction (Unknown, Uncoded 03/31/25 08:16) nose bleeds Medication List - Last Reconciled 03/31/25 by Wendy Núñez PA-C albuterol sulfate 90 mcg/actuation 2 puffs inhalation QID gabapentin 800 mg PO BID ibuprofen 600 mg PO BID lidocaine 5% 1 patch topical DAILY ondansetron 8 mg PO Q12H PRN 5 days pantoprazole 40 mg PO DAILY 90 days propranolol 20 mg PO BID tizanidine 2 mg PO Q8H PRN 5 days Tobacco use date assessed: 02/17/25 Dental Screening Dental Screen Date: 02/17/25 HPI discuss water in ear HPI Details 39-year-old female with past medical his tory of anxiety, asthma, GERD, hypertension, migraines, depression, PTSD, OCD last seen 02/2025 via telehealth presenting via telehealth for acute problem. In review of the notes, patient had CT scan done which showed rounded densities suspected calcifications and cavernous malformations recommending MRI for further evaluation. Patient tells us today she had fluid in the right ear last week having an underwater sensation in the right ear and occasional left ear. She also had a small pimple on the right tragus and was using warm compresses which cause the pimple to leak a foul-smelling purulent drainage. She continues to have pain and redness around this area as well as pain in the ear. Denies any discharge in the ear and denies any tenderness behind the ear as well. [facility] Medical History HTN (hypertension) GERD (gastroesophageal reflux disease) Anxiety Depression Asthma Surgical History H/O breast surgery Social History Housing: House Alcohol intake: never Patient Tobacco Use Status: Never used Tobacco e-Cigarette/Vaping Use: Never Used Second Hand Smoke Exposure: No service: No Current occupational status: disabled Current occupational exposures/hazards: No Cognitive needs: No Hearing needs: No Vision needs: Yes Questionnaire Thrive Questionnaire Date Thrive assessed: 05/12/24 I am a: Patient What is your living situation today?: I choose not to answer this question Within the past 12 months, did the food you bought not last and you didn't have the money to get more?: Never true Within the past 12 months, did you worry whether your food would run out before you got money to buy more?: Never true Do you have trouble paying for medicines?: No Do you have trouble getting transportation to medical appointments?: Yes Do you have trouble paying your heating and electricity bill?: No Do you have trouble taking care of your child, family member or friend?: No Do you have trouble with day-to-day activities such as bathing, preparing meals, shopping, managing finances, etc.?: Yes Are you currently unemployed and looking for a job?: No Are you interested in more education?: No Please select the resources that you would like help with: Transportation Currently or been in a relationship where the following occur: No concerns reported THRIVE Score: 1 AUDIT C Alcohol Use Questionnaire (AUDIT-C) 3. How often do you have six or more drinks on one occasion?: Never Total Score: 0 PILY-7 AMB Questionnaire PILY-7 Date PILY - 7 assessed: 02/17/25 Source: Developed by Drs. Héctor Tilley, Laura Ortiz, Sharif Duenas and colleagues, with an educational stella from [employer]. Review of Systems Const Denies body aches, Denies chills, Denies fatigue and Denies fever(s) Eyes Reports no additional complaints ENT Reports as per HPI, Reports otalgia, Denies nasal congestion, Denies post nasal drip, Denies tinnitus and Denies sore throat Card Denies chest pain and Denies dyspnea Resp Denies dyspnea GI Reports no additional complaints Skin/Breast Reports system reviewed and no additional complaints, except as documented Endo Denies fatigue Physical exam (Primary Care) Vital Signs: Vital signs and physical exam not performed today due to nature of telehealth visit Tobacco/Smoking Status: Tobacco use Status Tobacco use date assessed 02/17/25 03/31/25 08:18 Patient Tobacco Use Status Never used Tobacco 03/31/25 08:18 Tobacco use type 03/29/25 10:49 e-Cigarette/Vaping Use Never Used 03/31/25 08:18 Thrive Assessment: Date of Thrive Assessment Date Thrive assessed 05/12/24 03/31/25 08:18 Currently or been in a relationship where the following occur: No concerns reported Telehealth Telehealth Telehealth Platform: Telephone Location of provider rendering services: practice address Location of patient: address on file Patient Identification confirmed using: Name, : Yes Telehealth method: voice only Patient verbally consented to treatment: Yes Patient verbally consented to billing insurance company: Yes Patient informed of any privacy concerns related to visit: Yes Coding Level of Care Code Tele Est Pt Level 4 (46065) Diagnoses Calcification of brain G93.89 Cellulitis L03.312 Site of cellulitis: trunk Site of cellulitis of trunk: back Right ear pain H92.01 Assessment & Plan Assessment & Plan (1) Calcification of brain: Comment: Rounded densities, suspected calcifications, as detailed in the right frontal white matter and right mid to posterior cingulate gyrus, without surrounding edema, most likely cavernous malformations. Further investigation with MRI could be considered Code(s): G93.89 - Other specified disorders of brain Category: Medical Plan: Patient's CT showing likely calcification of the brain recommending an MRI for further evaluation given the patient's symptom of facial numbness. MRI order was placed (2) Cellulitis: Code(s): L03.90 - Cellulitis, unspecified Category: Medical Qualifiers: Site of cellulitis: trunk Site of cellulitis of trunk: back Qualified Code(s): L03.312 - Cellulitis of back [any part except buttock] Plan: Patient having should suspected cellulitis. Given that this is a telehealth visit I did inform the patient if pain does not improve she needs to be seen either in the office, walk-in or ED for further evaluation. Plan to treat with Augmentin twice daily for 5 days and patient to follow up if symptoms worsen or do not improve. I reviewed red flag symptoms and when to present for re-evaluation. (3) Right ear pain: Code(s): H92.01 - Otalgia, right ear Category: Medical Plan: Low suspicion for mastoiditis as patient is not having tenderness to palpation behind the ear. I did discuss with the patient however this is a telehealth visit and I am unable to perform a physical exam at this time. I reviewed red flag symptoms and when to present for re-evaluation advised patient if symptoms worsen or do not improve she needs to be seen by myself or another healthcare provider. Her pain seems to be more localized on the outside of the ear around the area of site of possible cellulitis. For the underwater sensation recommending allergy medication and may use decongestant with caution given history of hypertension. Plan This note was constructed using voice recognition software. While every effort has been made to ensure accuracy and roller setter, still areas may have been included sometimes these areas may affect the content or meeting of the given symptoms. Total time spent caring for the patient today was 20 minutes. This includes time spent before the visit reviewing the chart, time spent during the visit, and time spent after the visit and documentation. Orders: Orders MR head/brain wo con Today G93.89 - Other specified disorders of brain Medications: New amoxicillin-pot clavulanate 875-125 mg 1 tab PO BID 10 tabs 0RF Refilled ondansetron 8 mg PO Q12H PRN 10 tabs 0RF nausea and vomiting 5 days ibuprofen 600 mg PO BID 30 tabs 0RF M79.672 - Pain in left foot
--- OUTSIDE RECORDS SUMMARY | 2025-03-31 08:38 | XMS_ITS | Clinical Summary ---
Author Organization [facility] Address [address] [place] [address] Phone Care Team Providers Care Apartment Locator Name Role Phone Wendy Núñez Primary Care Provider [phone] Allergies Active Allergy Reactions Criticality Noted Date [...] cancer Brother 2 mid-30's Diabetes Father CVA, MS, deceas ed 54, IBS, GERD Hypertension Father [...] patient's age to complete this topic Insurance [facility] PLAN Care Teams Apartment Locator Relationship Specialty Start Date End Date Wendy Núñez PA [address] [place] [address], [address] [place] [address] PCP - General 06/09/24
--- OUTSIDE RECORDS SUMMARY | 2025-03-31 08:38 | XMS_ITS | Clinical Summary ---
Author Organization [facility] [employer] [facility] [employer] Address [address] [place] [address] Care Team Providers Care Hydrant Setter Name Role Phone Pcp, No Primary Care Provider [phone] Allergies No known active allergies Medications hydroCHLOROthia [...] Adults 18 yrs or above (or HM Modifier)([facility]) 2003 Hepatitis C Virus Infection in Adolescents and Adults: Screening (or Modifier) ([facility]) 2003 SDOH Screening Reminder: Hiral lorenzo for all adults ([facility]) 2003 Tobacco Smoking Cessation: i n Adults excluding Women: Behavioral and Pharmacotherapy Interventions ([facility]) 2003 DTaP/Tdap/Td Vaccines ([facility]) (1 - [...] topic Medical Devices Not on file Insurance [facility] [employer] Care Teams Hydrant Setter Relationship Specialty Start Date End Date Pcp, No PCP - General Family Medicine 08/02/23
== END 2025-03-31 08:38 | disposition home or self-care (01) ==
LOC: HO.HMCH 08:14
DX: G93.89 Other specified disorders of brain (principal); L03.312 Cellulitis of back [any part except buttock and flank]; H92.01 Otalgia, right ear

== ENCOUNTER 2025-06-03 15:06 | Outpatient (AMB) | payer OTHER, SELFPAY ==
[2025-06-03 15:08] VITALS: BP 150/80; PULSE 89; RESP 18; O2SAT 97
--- NOTE | 2025-06-03 15:08 | MHC.PC.OV ---
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 Accompanied by: Self / Same As Patient Allergies iohexol (From Omnipaque) Allergy (Unknown, Verified 06/03/25 15:08) Itching morphine Allergy (Unknown, Verified 06/03/25 15:08) throat closing BEES, CATS, DOGS Allergy (Unknown, Uncoded 03/31/25 08:16) rash Vicodin Allergy (Unknown, Uncoded 03/31/25 08:16) throat closing Prilosec Adverse Reaction (Unknown, Uncoded 03/31/25 08:16) nose bleeds Medication List - Last Reconciled 06/03/25 by Joseluis Sinclair MD acetaminophen ER (Tylenol 8 Hour) 650 mg PO Q12H PRN albuterol sulfate 90 mcg/actuation 2 puffs inhalation QID apixaban (Eliquis) 5 mg PO BID [commode As directed] ondansetron 8 mg PO Q12H PRN 5 days pantoprazole 40 mg PO DAILY 90 days [Pulse oximeter As directed] Tobacco use date assessed: 06/03/25 Dental Screening Dental Screen Date: 06/03/25 Did you have a dental visit in the last 12 months?: No Did you have a dental problem in the last 6 months where you did not have access to dental care?: No Was dental information given to patient?: No HPI HPI Comments History of Present Illness Details The patient is a 40-year-old female presenting for a follow-up after being hospitalized for blood clots. She was hospitalized for over two weeks ending on April 27 for shortness of breath and was diagnosed with subsegmental pulmonary emboli in the branches of her lungs and a deep vein thrombosis in her left upper extremity. Following her hospital stay, she was transferred to a medical rehabilitation facility. The DVT in her arm has since resolved, but she continues to experience constant chest pain. An echocardiogram performed during her hospitalization was normal and showed no heart strain. She is on Eliquis and was previously taking Celebrex, which was prescribed in the hospital and rehab, but her PCP advised her to stop taking it due to risks of taking it with Eliquis. She notes that Celebrex was effective in reducing her swelling. The patient also has a history of a perforated right tympanic membrane and possibly a perforated left one as well, for which she was recommended to see an ENT specialist. She has a history of acid reflux, for which she takes pantoprazole, and experiences frequent nausea and vomiting. She had a fall yesterday but did not hit her head. [facility] Medical History HTN (hypertension) GERD (gastroesophageal reflux disease) Anxiety Depression Asthma Surgical History H/O breast surgery Social History Housing: House Alcohol intake: never Patient Tobacco Use Status: Never used Tobacco e-Cigarette/Vaping Use: Never Used Second Hand Smoke Exposure: No service: No Current occupational status: disabled Current occupational exposures/hazards: No Cognitive needs: No Hearing needs: No Vision needs: Yes Questionnaire PHQ-9 Over the last 2 weeks, how often have you been bothered by any of the following problems? 1. Little interest or pleasure in doing things: more than half the days 2. Feeling down, depressed, or hopeless: more than half the days 3. Trouble falling or staying asleep, or sleeping too much: more than half the days 4. Feeling tired or having little energy: more than half the days 5. Poor appetite or overeating: more than half the days 6. Feeling bad about yourself - or that you are a failure or have let yourself or your family down: more than half the days 7. Trouble concentrating on things, such as reading the newspaper or watching television: more than half the days 8. Moving or speaking so slowly that other people could have noticed. Or the opposite - being so fidgety or restless that you have been moving around a lot more than usual: several days 9. Thoughts that you would be better off or of hurting yourself in some way: not at all Total score: 15 Source: Developed by Drs. Héctor Tilley, Laura Ortiz, Sharif Duenas and colleagues, with an educational stella from [employer]. Thrive Questionnaire Date Thrive assessed: 05/12/24 I am a: Patient What is your living situation today?: I choose not to answer this question Within the past 12 months, did the food you bought not last and you didn't have the money to get more?: Never true Within the past 12 months, did you worry whether your food would run out before you got money to buy more?: Sometimes True Do you have trouble paying for medicines?: No Do you have trouble getting transportation to medical appointments?: Yes Do you have trouble paying your heating and electricity bill?: Yes Do you have trouble taking care of your child, family member or friend?: No Do you have trouble with day-to-day activities such as bathing, preparing meals, shopping, managing finances, etc.?: Yes Are you currently unemployed and looking for a job?: I choose not to answer this question Are you interested in more education?: I choose not to answer this question Currently or been in a relationship where the following occur: No concerns reported THRIVE Score: 3 PILY-7 AMB Questionnaire PILY-7 Date PILY - 7 assessed: 02/17/25 Source: Developed by Drs. Héctor Tilley, Laura Ortiz, Sharif Duenas and colleagues, with an educational stella from [employer]. Review of Systems Const Details: As per HPI. Physical exam (Primary Care) Vital Signs: Last Vital Signs Pulse 89 06/03/25 15:08 Resp 18 06/03/25 15:08 BP 150/80 H 06/03/25 15:08 Pulse Ox 97 06/03/25 15:08 Oxygen Delivery Method Room Air 06/03/25 15:08 Tobacco/Smoking Status: Tobacco use Status Tobacco use date assessed 06/03/25 06/03/25 15:20 Patient Tobacco Use Status Never used Tobacco 06/03/25 15:20 Tobacco use type 03/29/25 10:49 e-Cigarette/Vaping Use Never Used 06/03/25 15:20 PHQ-9: PHQ-9 Score PHQ-9: Total score 15 06/03/25 15:20 Thrive Assessment: Date of Thrive Assessment Date Thrive assessed 05/12/24 06/03/25 15:20 Currently or been in a relationship where the following occur: No concerns reported Const Other: Pertinent findings are in BOLD GENERAL APPEARANCE NAD, activity normal for age, well developed/ well nourished, no cyanosis, pallor, or diaphoresis. Wheelchair bound. EYES lids/conjunctiva normal. EARS/NOSE/THROAT Mucous membranes moist, nares normal, lips/teeth normal uvula midline without oral pharyngeal erythema, exudate or swelling. No lymphangitis/lymphedema. TM on left side is perforated. Ear canal on right side with mild erythema. HEAD/NECK normocephalic atraumatic, no facial trauma, neck is supple. RESPIRATORY respiratory effort normal, speaks in full sentences, no tripod position, no accessory muscle use. Lungs clear to auscultation without rhonchi, wheezes, rales CARDIAC Regular rate and rhythm, no edema. ABDOMINAL Soft, ND/NT. No evidence of fluid wave. No pulsatile masses on exam, rebound tenderness, Kumari sign or pain over Mcburney's point. MUSCLES/EXTREMITIES No abnormal range of motion, no swelling. SKIN Warm, pink and dry. No rashes, dermatoses, petechiae or lesions. NEUROLOGICAL Speech is clear and appropriate. Normal level of consciousness. Gait and coordination are normal. 5/5 strength in all extremities. PSYCH Normal mood and affect. Judgement/competence is appropriate Coding Level of Care Code Est Pt Level 4 (64762) Diagnoses Multiple subsegmental pulmonary emboli without acute cor pulmonale I26.94 Pulmonary embolism type: multiple subsegmental (without acute cor pulmonale) Primary hypertension I10 Hypertension type: primary hypertension Left foot pain M79.672 Intermittent chest pain R07.9 Chronic midline low back pain with sciatica, sciatica laterality unspecified M54.40; G89.29 Back pain location: low back pain Chronicity: chronic Back pain laterality: midline Sciatica presence: with sciatica Sciatica laterality: sciatica laterality unspecified Ear ache H92.09 Gastroesophageal reflux disease, unspecified whether esophagitis present K21.9 Esophagitis presence: esophagitis presence not specified Anxiety F41.9 Time Spent (min) 30 Assessment & Plan Assessment & Plan (1) Pulmonary embolism: Comment: Dx [facility] 04/20/25 Code(s): I26.99 - Other pulmonary embolism without acute cor pulmonale Category: Medical Qualifiers: Pulmonary embolism type: multiple subsegmental (without acute cor pulmonale) Qualified Code(s): I26.94 - Multiple subsegmental pulmonary emboli without acute cor pulmonale Plan: - The patient will continue taking Eliquis for anticoagulation. - She has an appointment scheduled with hematology/oncology on August 01 for management of the blood clots. - A referral will be placed for cardiology for further monitoring, as recommended during her hospital stay, despite a recent normal echocardiogram. (2) HTN (hypertension): Code(s): I10 - Essential (primary) hypertension Category: Medical Qualifiers: Hypertension type: primary hypertension Qualified Code(s): I10 - Essential (primary) hypertension Plan: - The patient's blood pressure was elevated at 150/80 mmHg. - Amlodipine 5 mg daily. - Acknowledged that stress contributes to her elevated blood pressure. (3) Left foot pain: Code(s): M79.672 - Pain in left foot Category: Medical Plan: - The patient was advised to continue holding Celebrex due to the increased risk when taken with Eliquis. - Tylenol 500 mg every six hours as needed for a maximum of four times per day will be prescribed for pain management. (4) Intermittent chest pain: Code(s): R07.9 - Chest pain, unspecified Category: Medical Plan: - The patient was advised she can use Voltaren gel topically for muscular chest pain but to use it cautiously and as needed, acknowledging a small amount is absorbed systemically. - Lidocaine patches are not an option as they are not covered by her insurance. - Most likely MSK as it is reproducible on exam. (5) Back pain: Code(s): M54.9 - Dorsalgia, unspecified Category: Medical Qualifiers: Back pain location: low back pain Chronicity: chronic Back pain laterality: midline Sciatica presence: with sciatica Sciatica laterality: sciatica laterality unspecified Qualified Code(s): M54.40 - Lumbago with sciatica, unspecified side; G89.29 - Other chronic pain Plan: - Patient will require follow-up with a specialist for her pinched sciatic nerve. (6) Ear ache: Code(s): H92.09 - Otalgia, unspecified ear Category: Medical Plan: - The patient was previously recommended to see an ear, nose, and throat (ENT) specialist. - Ciprofloxacin ear drop for right ear irritation. (7) GERD (gastroesophageal reflux disease): Code(s): K21.9 - Gastro-esophageal reflux disease without esophagitis Category: Medical Qualifiers: Esophagitis presence: esophagitis presence not specified Qualified Code(s): K21.9 - Gastro-esophageal reflux disease without esophagitis Plan: - The patient is currently taking pantoprazole. - Advised to continue pantoprazole over famotidine, as it is generally more effective for long-term control. - Advised that rpru-dih-wdrukza medications like Maalox can be used for breakthrough symptoms. (8) Anxiety: Code(s): F41.9 - Anxiety disorder, unspecified Category: Medical Plan: - The patient's significant anxiety and stress were noted, particularly in relation to her home situation and recent health events. - Assured the patient that while stress is not good for overall health, it does not directly worsen the blood clots. Plan I reviewed the patient's recent hospitalization for subsegmental pulmonary embolism and DVT. We discussed her current pain management, and I explained the rationale for discontinuing Celebrex while on Eliquis due to potential interactions. I prescribed Tylenol 500 mg every 6 hours for pain and advised that she could use topical Voltaren gel cautiously for her muscular chest pain, clarifying that only a small amount is absorbed systemically. I addressed her elevated blood pressure of 150/80 mmHg, acknowledging that stress can be a contributing factor, but explained the need to start a low-dose amlodipine for better control. I reassured her that the new medication would not interact with Eliquis. Regarding her anxiety about the blood clots, I explained that stress can increase blood pressure and blood sugar but does not cause the clots to move or worsen. We discussed her follow-up care, including her scheduled appointment with hematology/oncology and the plan to place a referral to cardiology for further monitoring. I also reviewed her GERD medications, affirming that continuing pantoprazole is preferable to switching to famotidine. Finally, I agreed to complete the necessary paperwork for her DTA benefits. Orders: Referrals Cardiology Referral I26.99 - Other pulmonary embolism without acute cor pulmonale Medications: New acetaminophen (Tylenol Extra Strength) 500 mg PO Q6H PRN 60 tabs 3RF fever amlodipine 5 mg PO DAILY 60 tabs 0RF diclofenac sodium 1% (Voltaren Arthritis Pain) apply to single knee, ankle, foot; for foot includes sole/toes/top of foot 4 grams topical QID 100 grams 3RF ciprofloxacin HCl 0.2% 5 drps otic (ears) Q12H 14 ea 0RF 7 days Refilled apixaban (Eliquis) 5 mg PO BID 60 tabs 3RF Discontinued acetaminophen ER (Tylenol 8 Hour) Discontinued Reason: Doctor's Order 650 mg PO Q12H PRN 60 tabs 0RF pain
--- OUTSIDE RECORDS SUMMARY | 2025-06-03 15:24 | XMS_ITS | Clinical Summary ---
Author Organization [employer] [facility] Address [address] [place] [address] Care Team Providers Care Loan Underwriter Name Role Phone Pcp, No Primary Care Provider [phone] Allergies No known active allergies Medications hydroCHLOROthia [...] Mass Index - - Plan of Treatment Not on file Medical Devices Not on file Insurance [facility] [employer] Care Teams Loan Underwriter Relationship Specialty Start Date End Date Pcp, No PCP - General Family Medicine 08/02/23
--- OUTSIDE RECORDS SUMMARY | 2025-06-03 15:24 | XMS_ITS | Clinical Summary ---
Author Organization [facility] Address [address] [place] [address] Phone Care Team Providers Care [employer] Name Role Phone Wendy Núñez Primary Care Provider [phone] Allergies Active Allergy Reactions Criticality Noted Date [...] cancer Brother 2 mid-30's Diabetes Father CVA, [place], deceas ed 54, IBS, GERD Hypertension Father [...] Health Maintenance Due Date Last Done Comments Breast Cancer Screening 1985 Hepatitis B Vaccines (1 of 3 - 19+ 3-dose series) 2004 Cervical Cancer Screening: P ap Smear 2006 HPV Vaccines (1 - 3-dose SCD M series) 2012 HIV Screening 09/02/2023 Hepatitis C Screening 09/02/2023 Social Influencers of Health Screening 09/02/2023 Depression Screening 08/04/2024 COVID-19 Vaccine ( - 2023-2 5 season) 2025 Influenza Vaccine (#1) 2025 05/09/2016 DTaP,Tdap,and Td Vaccines (3 - Td or Tdap) 08/04/2026 08/04/2016, 06/11/2011 RSV Immunization Adult Patients (1 - 1-dose 75+ series) 2060 Pneumococcal Vaccine: Pediatrics (0 to 5 Years) [...] patient's age to complete this topic Insurance [employer] Care Teams [employer] Relationship Specialty Start Date End Date Wendy Núñez PA [address] [place] [address], [address] [place] [address] PCP - General 06/09/24
== END 2025-06-03 15:49 | disposition home or self-care (01) ==
LOC: HO.HMCH 15:06
PROVIDERS: Visit Provider Internal Medicine
DX: I26.94 Multiple subsegmental thrombotic pulmonary emboli without acute cor pulmonale (principal); I10 Essential (primary) hypertension; M79.672 Pain in left foot; R07.9 Chest pain, unspecified; M54.40 Lumbago with sciatica, unspecified side; G89.29 Other chronic pain; H92.09 Otalgia, unspecified ear; K21.9 Gastro-esophageal reflux disease without esophagitis; F41.9 Anxiety disorder, unspecified

== ENCOUNTER → 2025-06-03 15:06 | Outpatient (BNVA) | payer OTHER, SELFPAY | PROVIDERS: Visit Provider Internal Medicine | DX: Z09 Encounter for follow-up examination after completed treatment for conditions other than malignant neoplasm (principal); Z86.718 Personal history of other venous thrombosis and embolism; I26.94 Multiple subsegmental thrombotic pulmonary emboli without acute cor pulmonale; I10 Essential (primary) hypertension; M79.672 Pain in left foot; R07.9 Chest pain, unspecified; M54.50 Low back pain, unspecified; G89.29 Other chronic pain; K21.9 Gastro-esophageal reflux disease without esophagitis; F41.9 Anxiety disorder, unspecified; Z79.01 Long term (current) use of anticoagulants; Z99.3 Dependence on wheelchair | CPT/HCPCS: 99212 ==